=== PATIENT | female | born 1940 | race American Indian/Alaskan Native ===

== ENCOUNTER 2017-01-28 11:43 | Emergency (ER) | payer MEDICARE ==
[2017-01-28 12:42] LABS: INR 0.98 (0.87-1.13)
[2017-01-28 12:43] LABS: Hemoglobin 10.9 gm/dl (10.1-14.3); Mean Corpuscular HGB Conc 33 % (30-34); Mean Corpuscular Hemoglobin 33 pg (28-32); Mean Corpuscular Volume 101 fl (79-97); Partial Thromboplastin Time 23.2 Sec. (24.2-36.6); Platelet Count 185 K/mm3 (140-440); Red Blood Count 3.27 M/mm3 (3.65-5.03); Red Cell Distribution Width 13.1 % (13.2-15.2); White Blood Count 4.3 K/mm3 (4.5-11.0)
--- NOTE | 2017-01-28 13:07 | XRay Report ---
AP CHEST: HISTORY: Productive cough AP view of the chest demonstrates a normal mediastinal and cardiac contour with clear lungs and normal bony and soft tissue structures. IMPRESSION: Unremarkable AP chest. No significant change since 10/20/16.
[2017-01-28 13:17] LABS: Anion Gap 14 mmol/L; BUN/Creatinine Ratio 18.75; Blood Urea Nitrogen 15 mg/dL (7-17); Calcium 9.5 mg/dL (8.4-10.2); Carbon Dioxide 24 mmol/L (22-30); Chloride 106.1 mmol/L (98-107); Creatine Kinase 46 units/L (30-135); Glucose 88 mg/dL (65-100); Potassium 4.4 mmol/L (3.6-5.0); Sodium 140 mmol/L (137-145)
[2017-01-28 13:27] LABS: Creatine Kinase MB < 1.0 ng/mL (0.0-4.0)
[2017-01-28 13:43] LABS: Alanine Aminotransferase 21 units/L (7-56); Albumin 3.6 g/dL (3.9-5); Albumin/Globulin Ratio 1.5 %; Alkaline Phosphatase 87 units/L (35-129); Bilirubin,Total 0.6 mg/dL (0.1-1.2)
[2017-01-28 14:18] LABS: Bilirubin,Direct < 0.2 mg/dL (0-0.2); Bilirubin,Indirect 0.4 mg/dL
[2017-01-28 14:53] LABS: Basophils % (Manual) 0 % (0.0-1.8); Blastocytes % (Manual) 0 %
[2017-01-28 14:54] LABS: Anisocytosis 1+; Diff Status Complete
--- NOTE | 2017-01-28 15:37 | Emergency Department Report ---
ED General Adult HPI - General Chief complaint: Weakness Stated complaint: WEAKNESS Time Seen by Provider: 01/28/17 12:31 Source: patient, family, EMS Mode of arrival: Stretcher Limitations: No Limitations - History of Present Illness Initial comments: Patient complains of generalized weakness. She was transported via EMS. She states that she has felt this way for at least 2 weeks and she lives at home with her son who is "around some of the time. She states that she's had a poor appetite recently. She states that she fell this morning but not believe she has an injury. She wanted to right knee. She is not complaining of any chest pain or any shortness breath. She states that she has had some yellow sputum recently and some occasional shortness of breath. He does not believe she's had fever or chills. She's had no recent travel no leg pain or swelling. Symptoms really quite vague. She also states that home health does not to her a lot of good. -: week(s) Severity scale (0 -10): 0 Consistency: intermittent Improves with: none Worsens with: none Associated Symptoms: cough, weakness Treatments Prior to Arrival: none - Related Data Home Medications Medication Instructions Recorded Confirmed Last Taken Ranitidine HCl [Zantac] 150 mg PO BID 03/24/16 03/27/16 Unknown Previous Rx's Medication Instructions Recorded Last Taken Type Acetaminophen [Acetaminophen TAB] 650 mg PO Q4H PRN #30 tablet 03/27/16 Unknown Rx Aspirin [Aspirin TAB] 325 mg PO QDAY #30 tablet 04/11/16 Unknown Rx Atenolol [Tenormin] 100 mg PO DAILY #30 tablet 04/11/16 Unknown Rx AtorvaSTATin [Lipitor] 40 mg PO QDAY #30 tablet 04/11/16 Unknown Rx Duloxetine HCl [Cymbalta] 30 mg PO BID #60 capsule. 04/11/16 Unknown Rx Insulin Glulisine [Apidra] See Protocol SUB-Q ACHS 30 Days 04/11/16 Unknown Rx Lisinopril 20 mg PO DAILY #30 04/11/16 Unknown Rx Meloxicam [Mobic] 15 mg PO QDAY #30 tablet 04/11/16 Unknown Rx Multivitamin Tab [Multiple Vitamin 1 each PO QDAY #30 tablet 04/11/16 Unknown Rx TAB (Theragran)] Norvasc 10 mg PO DAILY #30 04/11/16 Unknown Rx Ranolazine [Ranexa] 500 mg PO BID #60 tab.er.12h 04/11/16 Unknown Rx Sertraline HCl [Zoloft] 25 mg PO QDAY #30 tablet 04/11/16 Unknown Rx Temazepam [Restoril] 15 mg PO QHS PRN #15 capsule 04/11/16 Unknown Rx traMADol [Ultram 50 MG tab] 50 mg PO QDAY PRN #30 tablet 04/11/16 Unknown Rx Acetaminophen/Codeine [Tylenol #3] 1 tab PO Q6H PRN #12 tab 09/24/16 Unknown Rx Azithromycin [Zithromax Z-MELCHOR] 250 mg PO DAILY #6 tablet 01/28/17 Unknown Rx Allergies Allergy/AdvReac Type Severity Reaction Status Date / Time zolpidem tartrate AdvReac HALLUCINATE Verified 06/14/15 12:36 [From [facility]] ED Review of Systems ROS: Stated complaint: WEAKNESS Other details as noted in HPI Constitutional: weakness. denies: chills, fever Eyes: denies: eye pain, eye discharge, vision change ENT: denies: ear pain, throat pain Respiratory: cough. denies: shortness of breath, wheezing Cardiovascular: denies: chest pain, palpitations Endocrine: no symptoms reported Gastrointestinal: denies: abdominal pain, nausea, diarrhea Genitourinary: denies: urgency, dysuria, discharge Musculoskeletal: denies: back pain, joint swelling, arthralgia Skin: denies: rash, lesions Neurological: denies: headache, weakness, paresthesias Psychiatric: denies: anxiety, depression Hematological/Lymphatic: denies: easy bleeding, easy bruising ED Past Medical Hx - Past Medical History Previous Medical History?: Yes Hx Hypertension: Yes Hx CVA: Yes (no deficits 03/24/16) Hx Heart Attack/AMI: Yes Hx Congestive Heart Failure: Yes Hx Diabetes: Yes (19 YRS) Hx GERD: Yes (GERD) Hx Liver Disease: No Hx Renal Disease: (h/o kidney stones, UTI) Hx Arthritis: Yes Hx COPD: Yes (not on inhalers, denies dyspnea) Hx HIV: No Additional medical history: HIGH CHOLESTEROL. CAD - Surgical History Past Surgical History?: Yes Hx Coronary Stent: Yes (2001) Hx Pacemaker: No Hx Appendectomy: Yes Additional Surgical History: right knee replacement, hysterectomy, back surgery - Social History Smoking Status: Former Smoker Substance Use Type: None - Medications Home Medications: Home Medications Medication Instructions Recorded Confirmed Last Taken Type Ranitidine HCl [Zantac] 150 mg PO BID 03/24/16 03/27/16 Unknown History Acetaminophen [Acetaminophen TAB] 650 mg PO Q4H PRN #30 tablet 03/27/16 Unknown Rx Aspirin [Aspirin TAB] 325 mg PO QDAY #30 tablet 04/11/16 Unknown Rx Atenolol [Tenormin] 100 mg PO DAILY #30 tablet 04/11/16 Unknown Rx AtorvaSTATin [Lipitor] 40 mg PO QDAY #30 tablet 04/11/16 Unknown Rx Duloxetine HCl [Cymbalta] 30 mg PO BID #60 capsule. 04/11/16 Unknown Rx Insulin Glulisine [Apidra] See Protocol SUB-Q ACHS 30 Days 04/11/16 Unknown Rx Lisinopril 20 mg PO DAILY #30 04/11/16 Unknown Rx Meloxicam [Mobic] 15 mg PO QDAY #30 tablet 04/11/16 Unknown Rx Multivitamin Tab [Multiple Vitamin 1 each PO QDAY #30 tablet 04/11/16 Unknown Rx TAB (Theragran)] Norvasc 10 mg PO DAILY #30 04/11/16 Unknown Rx Ranolazine [Ranexa] 500 mg PO BID #60 tab.er.12h 04/11/16 Unknown Rx Sertraline HCl [Zoloft] 25 mg PO QDAY #30 tablet 04/11/16 Unknown Rx Temazepam [Restoril] 15 mg PO QHS PRN #15 capsule 04/11/16 Unknown Rx traMADol [Ultram 50 MG tab] 50 mg PO QDAY PRN #30 tablet 04/11/16 Unknown Rx Acetaminophen/Codeine [Tylenol #3] 1 tab PO Q6H PRN #12 tab 09/24/16 Unknown Rx Azithromycin [Zithromax Z-MELCHOR] 250 mg PO DAILY #6 tablet 01/28/17 Unknown Rx ED Physical Exam - General Limitations: No Limitations General appearance: alert, in no apparent distress - Head Head exam: Present: atraumatic, normocephalic - Eye Eye exam: Present: normal appearance, PERRL, EOMI. Absent: scleral icterus - ENT ENT exam: Present: normal exam, mucous membranes moist - Neck Neck exam: Present: normal inspection. Absent: tenderness, meningismus - Respiratory Respiratory exam: Present: normal lung sounds bilaterally. Absent: respiratory distress - Cardiovascular Cardiovascular Exam: Present: regular rate, normal rhythm. Absent: systolic murmur, diastolic murmur, rubs, gallop - GI/Abdominal GI/Abdominal exam: Present: soft, normal bowel sounds. Absent: distended, tenderness, guarding, rebound, rigid - Extremities Exam Extremities exam: Present: normal inspection, full ROM, normal capillary refill. Absent: tenderness, pedal edema, joint swelling - Back Exam Back exam: Present: normal inspection. Absent: CVA tenderness (R), CVA tenderness (L) - Neurological Exam Neurological exam: Present: alert, oriented X3, CN II-XII intact. Absent: motor sensory deficit - Psychiatric Psychiatric exam: Present: normal affect, normal mood - Skin Skin exam: Present: warm, dry, intact, normal color. Absent: rash ED Course Vital Signs 01/28/17 01/28/17 13:13 14:00 Pulse Rate 79 Respiratory 16 13 Rate Blood Pressure 151/79 [Left] O2 Sat by Pulse 100 100 Oximetry - Reevaluation(s) Reevaluation #1: Was able take by mouth fluids here. She remained clinically stable. I cannot identify any acute indication for hospitalization. Outpatient follow-up was recommended. Eventually the patient did request discharge so she could go home with a family member that is being discharged today 01/28/17 17:45 ED Medical Decision Making - Lab Data Result diagrams: 01/28/17 12:12 01/28/17 12:12 Laboratory Results - last 24 hr 01/28/17 01/28/17 01/28/17 12:12 12:12 12:12 WBC 4.3 L RBC 3.27 L Hgb 10.9 Hct 33.0 MCV 101 H MCH 33 H MCHC 33 RDW 13.1 L Plt Count 185 Lymph % (Auto) Not Reportable [place] % (Auto) Not Reportable Eos % (Auto) Not Reportable Baso % (Auto) Not Reportable Lymph # Not Reportable Deuel # Not Reportable Eos # Not Reportable Baso # Not Reportable Add Manual Diff Complete Total Counted 100 Seg Neuts % (Manual) 65.0 Band Neutrophils % 0 Lymphocytes % (Manual) 27.0 Reactive Lymphs % (Man) 0 Monocytes % (Manual) 7.0 Eosinophils % (Manual) 1.0 Basophils % (Manual) 0 Metamyelocytes % 0 Myelocytes % 0 Promyelocytes % 0 Blast Cells % 0 Nucleated RBC % Not Reportable Seg Neutrophils # Not Reportable Seg Neutrophils # Man 2.8 Band Neutrophils # 0.0 Lymphocytes # (Manual) 1.2 Abs React Lymphs (Man) 0.0 Monocytes # (Manual) 0.3 Eosinophils # (Manual) 0.0 Basophils # (Manual) 0.0 Metamyelocytes # 0.0 Myelocytes # 0.0 Promyelocytes # 0.0 Blast Cells # 0.0 WBC Morphology Not Reportable Hypersegmented Neuts Not Reportable Hyposegmented Neuts Not Reportable Hypogranular Neuts Not Reportable Smudge Cells Not Reportable Toxic Granulation Not Reportable Toxic Vacuolation Not Reportable Dohle Bodies Not Reportable Pelger-Huet Anomaly Not Reportable Ayesha Rods Not Reportable Platelet Estimate Not Reportable Clumped Platelets Not Reportable Plt Clumps, EDTA Not Reportable Large Platelets Not Reportable Giant Platelets Not Reportable Platelet Satelliting Not Reportable Plt Morphology Comment Not Reportable RBC Morphology Not Reportable Dimorphic RBCs Not Reportable Polychromasia Not Reportable Hypochromasia Not Reportable Poikilocytosis Not Reportable Anisocytosis 1+ Microcytosis Not Reportable Macrocytosis Not Reportable Spherocytes Not Reportable Pappenheimer Bodies Not Reportable Sickle Cells Not Reportable Target Cells Not Reportable Tear Drop Cells Not Reportable Ovalocytes Not Reportable Helmet Cells Not Reportable [place] Bodies Not Reportable [place] Rings Not Reportable [place] Cells Not Reportable Bite Cells Not Reportable Crenated Cell Not Reportable Elliptocytes Not Reportable Acanthocytes (Spur) Not Reportable Rouleaux Not Reportable Hemoglobin C Crystals Not Reportable Schistocytes Not Reportable Malaria parasites Not Reportable Rj Bodies Not Reportable Hem Pathologist Commnt No PT 12.9 INR 0.98 APTT 23.2 L Sodium 140 Potassium 4.4 Chloride 106.1 Carbon Dioxide 24 Anion Gap 14 BUN 15 Creatinine 0.8 Estimated GFR > 60 BUN/Creatinine Ratio 18.75 Glucose 88 Calcium 9.5 Total Bilirubin Direct Bilirubin Indirect Bilirubin AST ALT Alkaline Phosphatase Total Creatine Kinase 46 CK-MB (CK-2) < 1.0 CK-MB (CK-2) Rel Index 2.1 Troponin T < 0.010 NT-Pro-B Natriuret Pep Total Protein Albumin Albumin/Globulin Ratio 01/28/17 01/28/17 12:12 12:12 WBC RBC Hgb Hct MCV MCH MCHC RDW Plt Count Lymph % (Auto) [place] % (Auto) Eos % (Auto) Baso % (Auto) Lymph # [place] # Eos # Baso # Add Manual Diff Total Counted Seg Neuts % (Manual) Band Neutrophils % Lymphocytes % (Manual) Reactive Lymphs % (Man) Monocytes % (Manual) Eosinophils % (Manual) Basophils % (Manual) Metamyelocytes % Myelocytes % Promyelocytes % Blast Cells % Nucleated RBC % Seg Neutrophils # Seg Neutrophils # Man Band Neutrophils # Lymphocytes # (Manual) Abs React Lymphs (Man) Monocytes # (Manual) Eosinophils # (Manual) Basophils # (Manual) Metamyelocytes # Myelocytes # Promyelocytes # Blast Cells # WBC Morphology Hypersegmented Neuts Hyposegmented Neuts Hypogranular Neuts Smudge Cells Toxic Granulation Toxic Vacuolation Dohle Bodies Pelger-Huet Anomaly Ayesha Rods Platelet Estimate Clumped Platelets Plt Clumps, EDTA Large Platelets Giant Platelets Platelet Satelliting Plt Morphology Comment RBC Morphology Dimorphic RBCs Polychromasia Hypochromasia Poikilocytosis Anisocytosis Microcytosis Macrocytosis Spherocytes Pappenheimer Bodies Sickle Cells Target Cells Tear Drop Cells Ovalocytes Helmet Cells [place] Bodies [place] Rings [place] Cells Bite Cells Crenated Cell Elliptocytes Acanthocytes (Spur) Rouleaux Hemoglobin C Crystals Schistocytes Malaria parasites Rj Bodies Hem Pathologist Commnt PT INR APTT Sodium Potassium Chloride Carbon Dioxide Anion Gap BUN Creatinine Estimated GFR BUN/Creatinine Ratio Glucose Calcium Total Bilirubin 0.6 Direct Bilirubin < 0.2 Indirect Bilirubin 0.4 AST 19 ALT 21 Alkaline Phosphatase 87 Total Creatine Kinase CK-MB (CK-2) CK-MB (CK-2) Rel Index Troponin T NT-Pro-B Natriuret Pep 191.3 Total Protein 6.0 L Albumin 3.6 L Albumin/Globulin Ratio 1.5 - EKG Data -: EKG Interpreted by Me EKG shows normal: sinus rhythm, axis, intervals, QRS complexes, ST-T waves Rate: normal - EKG Data Interpretation: no acute changes - Radiology Data interpreted by me: Chest x-ray no acute process Critical care attestation.: If time is entered above; I have spent that time in minutes in the direct care of this critically ill patient, excluding procedure time. ED Disposition Clinical Impression: General weakness Acute bronchitis Qualifiers: Bronchitis organism: unspecified organism Qualified Code(s): J20.9 - Acute bronchitis, unspecified Disposition: DISCHARGED TO HOME OR SELFCARE Is pt being admited?: No Does the pt Need Aspirin: No Condition: Stable Instructions: Acute Bronchitis (ED), Weakness (ED) Additional Instructions: Return any acute change or problem. Increase your fluids. I've written a prescription for your cough. Perhaps you have bronchitis but no ammonia showed up on the x-ray. Follow-up with primary care doctor would be recommended. Prescriptions: Azithromycin [Zithromax Z-MELCHOR] 250 mg PO DAILY #6 tablet Referrals: PRIMARY CARE, [Primary Care Provider] - 24 Hours Time of Disposition: 17:50
[2017-01-28 16:32] LABS: Bilirubin,Urine NEG (Negative); Blood,Urine NEG (Negative); Ketones,Urine NEG (Negative); Leukocyte Esterase,Urine NEG (Negative); Nitrite,Urine NEG (Negative); Protein,Urine <15 mg/dL mg/dL (Negative); RBC,Urine < 1.0 /HPF (0.0-6.0); Urobilinogen,Urine < 2.0 mg/dL (<2.0); WBC,Urine < 1.0 /HPF (0.0-6.0)
[2017-01-28 18:01] VITALS: BP 155/87
== END 2017-01-28 18:02 | disposition home or self-care (01) ==
LOC: ED 11:43
DX: J20.9 Acute bronchitis, unspecified (principal); R53.1 Weakness; I10 Essential (primary) hypertension; I25.2 Old myocardial infarction; I50.9 Heart failure, unspecified; E11.9 Type 2 diabetes mellitus without complications; K21.9 Gastro-esophageal reflux disease without esophagitis; J44.9 Chronic obstructive pulmonary disease, unspecified; Z87.891 Personal history of nicotine dependence
CPT/HCPCS: 36415; 71010; 80048; 80074; 81001; 82550; 82553; 83880; 84484; 85007; 85025; 85610; 85730; 93005; 93010; 99284

== ENCOUNTER 2018-01-20 09:59 | Outpatient (CLI) | payer MEDICARE ==
--- NOTE | 2018-01-20 11:22 | Cat Scan Report ---
CT ABDOMEN PELVIS WITHOUT CONTRAST: HISTORY: Gross hematuria. COMPARISON: 08/11/17. TECHNIQUE: Helical CT in 1.25mm intervals without IV contrast. Sagittal and coronal reconstructions. FINDINGS: Lung bases: Adequately aerated. Heart size is normal. Small hiatal hernia with suggestion of previous hernia repair surgical changes near the esophageal hiatus. Liver: Normal. Biliary system: Cholecystectomy. No biliary dilatation. Pancreas: Normal. Spleen: Normal. Kidneys/ureters/bladder: The kidneys are normal size and position. There are 2 exophytic cysts from the mid right kidney measuring up to 2.3 cm. No obvious renal mass on noncontrast CT. No nephrolithiasis. The ureters and bladder are unremarkable. Adrenal glands: Normal. Aorta: Mild calcifications. No aneurysm. Intestines: There is mild fecal retention in the colon. Scattered diverticula are noted in the sigmoid region. No acute inflammatory changes. No evidence for obstruction or focal mass. Appendix: Appendectomy changes are suspected. Pelvic viscera: Hysterectomy is suspected. No adnexal cyst or mass. Ascites: None. Adenopathy: None. Musculoskeletal: Osteopenia and mild diffuse degenerative changes.. IMPRESSION: Simple right renal cysts. No clear explanation for gross hematuria. Diverticulosis of the distal colon. Mild fecal retention. Surgical changes as described. No acute process identified.
== END 2018-01-20 10:00 | disposition home or self-care (01) ==
LOC: CT 09:59
PROVIDERS: ATTEND Urology
DX: N28.1 Cyst of kidney, acquired (principal); K44.9 Diaphragmatic hernia without obstruction or gangrene; K57.30 Diverticulosis of large intestine without perforation or abscess without bleeding; I70.0 Atherosclerosis of aorta; K59.00 Constipation, unspecified; M85.88 Other specified disorders of bone density and structure, other site; M47.899 Other spondylosis, site unspecified; Z90.49 Acquired absence of other specified parts of digestive tract; Z90.89 Acquired absence of other organs; Z90.710 Acquired absence of both cervix and uterus
CPT/HCPCS: 74176

== ENCOUNTER 2018-03-31 10:13 | Emergency (ER) | payer MEDICARE ==
--- NOTE | 2018-03-31 10:53 | Emergency Department Report ---
ED Abdominal Pain HPI - General Chief Complaint: Abdominal Pain Stated Complaint: FLANK PAIN Time Seen by Provider: 03/31/18 10:36 Source: patient, EMS Mode of arrival: Stretcher Limitations: Other - History of Present Illness Initial Comments: 77-year-old female with a past medical history of CHF, COPD, CVA without residual deficits, diabetes, GERD, CAD, hypertension, appendectomy, coronary stent, hysterectomy, cholecystectomy, and ureteral stent presents to the hospital complaints of left flank and abdominal pain 1 week worsening yesterday. Pain is described as achy and is moderate in intensity worse of movement and palpation. She is not taking any medication for pain at this time. She denies associated symptoms include nausea, vomiting, diarrhea, hematuria, dysuria, or fever. Decreased appetite reported. PMD: Dr. Drake, urologist is Dr. Haile Patient also states she has a history of chronic arthritis of the spine and in the past has received spinal injection. Her nurse supposedly rearranging follow up with these doctors to reinitiate treatment. - Related Data Home Medications Medication Instructions Recorded Confirmed Last Taken Ranitidine HCl [Zantac] 150 mg PO BID 03/24/16 08/12/17 Unknown Previous Rx's Medication Instructions Recorded Last Taken Type Acetaminophen [Acetaminophen TAB] 650 mg PO Q4H PRN #30 tablet 03/27/16 Unknown Rx Aspirin [Aspirin TAB] 325 mg PO QDAY #30 tablet 04/11/16 Unknown Rx Atenolol [Tenormin] 100 mg PO DAILY #30 tablet 04/11/16 Unknown Rx AtorvaSTATin [Lipitor] 40 mg PO QDAY #30 tablet 04/11/16 Unknown Rx Duloxetine HCl [Cymbalta] 30 mg PO BID #60 capsule. 04/11/16 Unknown Rx Insulin Glulisine [Apidra] See Protocol SUB-Q ACHS 30 Days 04/11/16 Unknown Rx units Lisinopril 20 mg PO DAILY #30 04/11/16 Unknown Rx Multivitamin Tab [Multiple Vitamin 1 each PO QDAY #30 tablet 04/11/16 Unknown Rx TAB (Theragran)] Norvasc 10 mg PO DAILY #30 04/11/16 Unknown Rx Ranolazine [Ranexa] 500 mg PO BID #60 tab.er.12h 04/11/16 Unknown Rx Sertraline HCl [Zoloft] 25 mg PO QDAY #30 tablet 04/11/16 Unknown Rx Temazepam [Restoril] 15 mg PO QHS PRN #15 capsule 04/11/16 Unknown Rx Azithromycin [Zithromax Z-MELCHOR] 250 mg PO DAILY #6 tablet 01/28/17 Unknown Rx HYDROcodone/APAP 5-325 [D Lo 1 each PO Q6HR PRN #10 tablet 08/17/17 Unknown Rx 5/325] Levofloxacin [Levaquin TAB] 500 mg PO Q24HR #3 tablet 08/17/17 Unknown Rx Cyclobenzaprine HCl [Flexeril 5 MG 5 mg PO TID PRN #30 tab 03/31/18 Unknown Rx TAB] Docusate Sodium [Colace] 100 mg PO BID PRN #20 capsule 03/31/18 Unknown Rx HYDROcodone/APAP 7.5-325 [D Lo 1 each PO Q6HR PRN #20 tablet 03/31/18 Unknown Rx 7.5/325] Ibuprofen [Motrin] 600 mg PO Q8H PRN #30 tablet 03/31/18 Unknown Rx Allergies Allergy/AdvReac Type Severity Reaction Status Date / Time zolpidem tartrate AdvReac HALLUCINATE Verified 06/14/15 12:36 [From [facility]] ED Review of Systems ROS: Stated complaint: FLANK PAIN Other details as noted in HPI Comment: All other systems reviewed and negative ED Past Medical Hx - Past Medical History Previous Medical History?: Yes Hx Hypertension: Yes Hx CVA: Yes (no deficits 03/24/16) Hx Heart Attack/AMI: Yes Hx Congestive Heart Failure: Yes Hx Diabetes: Yes (20 YRS) Hx GERD: Yes (GERD) Hx Liver Disease: No Hx Renal Disease: Yes (h/o kidney stones, UTI) Hx Arthritis: Yes Hx COPD: Yes (not on inhalers, denies dyspnea) Hx HIV: No Additional medical history: HIGH CHOLESTEROL. CAD - Surgical History Hx Coronary Stent: Yes (2001) Hx Pacemaker: No Hx Cholecystectomy: Yes (08/18) Hx Appendectomy: Yes Additional Surgical History: right knee replacement, hysterectomy, back surgery , stent in kidney/bladder? - Social History Smoking Status: Never Smoker Substance Use Type: None - Medications Home Medications: Home Medications Medication Instructions Recorded Confirmed Last Taken Type Ranitidine HCl [Zantac] 150 mg PO BID 03/24/16 08/12/17 Unknown History Acetaminophen [Acetaminophen TAB] 650 mg PO Q4H PRN #30 tablet 03/27/16 Unknown Rx Aspirin [Aspirin TAB] 325 mg PO QDAY #30 tablet 04/11/16 08/12/17 Unknown Rx Atenolol [Tenormin] 100 mg PO DAILY #30 tablet 04/11/16 08/12/17 Unknown Rx AtorvaSTATin [Lipitor] 40 mg PO QDAY #30 tablet 04/11/16 08/12/17 Unknown Rx Duloxetine HCl [Cymbalta] 30 mg PO BID #60 capsule. 04/11/16 08/12/17 Unknown Rx Insulin Glulisine [Apidra] See Protocol SUB-Q ACHS 30 Days 04/11/16 08/12/17 Unknown Rx units Lisinopril 20 mg PO DAILY #30 04/11/16 08/12/17 Unknown Rx Multivitamin Tab [Multiple Vitamin 1 each PO QDAY #30 tablet 04/11/16 08/12/17 Unknown Rx TAB (Theragran)] Norvasc 10 mg PO DAILY #30 04/11/16 08/12/17 Unknown Rx Ranolazine [Ranexa] 500 mg PO BID #60 tab.er.12h 04/11/16 08/12/17 Unknown Rx Sertraline HCl [Zoloft] 25 mg PO QDAY #30 tablet 04/11/16 08/12/17 Unknown Rx Temazepam [Restoril] 15 mg PO QHS PRN #15 capsule 04/11/16 08/12/17 Unknown Rx Azithromycin [Zithromax Z-MELCHOR] 250 mg PO DAILY #6 tablet 01/28/17 08/12/17 Unknown Rx HYDROcodone/APAP 5-325 [D Lo 1 each PO Q6HR PRN #10 tablet 08/17/17 Unknown Rx 5/325] Levofloxacin [Levaquin TAB] 500 mg PO Q24HR #3 tablet 08/17/17 Unknown Rx Cyclobenzaprine HCl [Flexeril 5 MG 5 mg PO TID PRN #30 tab 03/31/18 Unknown Rx TAB] Docusate Sodium [Colace] 100 mg PO BID PRN #20 capsule 03/31/18 Unknown Rx HYDROcodone/APAP 7.5-325 [D Lo 1 each PO Q6HR PRN #20 tablet 03/31/18 Unknown Rx 7.5/325] Ibuprofen [Motrin] 600 mg PO Q8H PRN #30 tablet 03/31/18 Unknown Rx ED Physical Exam - General Limitations: Other - Other Other exam information: General: No limitations, patient is alert in no acute distress Head exam: Atraumatic, normocephalic Eyes exam: Normal appearance, nonicteric sclera ENT: Moist mucous membrane, normal oropharynx Neck exam: Normal inspection, full range of motion, no meningismus nontender Respiratory exam: Clear to auscultation bilateral, no wheezes, rales, crackles Cardiovascular: Normal rate and rhythm, normal heart sounds Abdomen: Soft, nondistended, left lower quadrant tenderness, left mid abdominal tenderness, no rebound or guarding Extremity: Full range of motion normal inspection no deformity Back: Normal Inspection, full range of motion, left flank tenderness Neurologic: Alert, oriented x3, left arm and leg 4/5 strength (chronic) 5/5 on the right Psychiatric: normal affect, normal mood Skin: Warm, dry, intact ED Course Vital Signs 03/31/18 03/31/18 03/31/18 10:23 10:30 10:45 Temperature 98.4 F Pulse Rate 54 L Blood Pressure 171/71 O2 Sat by Pulse 99 99 99 Oximetry 03/31/18 03/31/18 03/31/18 11:00 11:27 11:31 Temperature Pulse Rate Blood Pressure 177/57 O2 Sat by Pulse 99 98 Oximetry 03/31/18 03/31/18 03/31/18 11:45 12:01 12:15 Temperature Pulse Rate Blood Pressure 177/57 O2 Sat by Pulse 99 99 100 Oximetry 03/31/18 03/31/18 03/31/18 12:30 12:45 13:01 Temperature Pulse Rate Blood Pressure 192/81 155/74 192/81 O2 Sat by Pulse 98 99 99 Oximetry - Reevaluation(s) Reevaluation #1: 03/31/18 14:49 pain persists but improving ED Medical Decision Making - Lab Data Result diagrams: 03/31/18 11:22 03/31/18 10:46 Lab Results 03/31/18 03/31/18 03/31/18 Range/Units 10:46 11:22 13:11 WBC 3.7 L (4.5-11.0) K/mm3 RBC 3.41 L (3.65-5.03) M/mm3 Hgb 11.8 (10.1-14.3) gm/dl Hct 34.7 (30.3-42.9) % MCV 102 H (79-97) fl MCH 35 H (28-32) pg MCHC 34 (30-34) % RDW 14.1 (13.2-15.2) % Plt Count 148 (140-440) K/mm3 Lymph % (Auto) 41.0 H (13.4-35.0) % Swisher % (Auto) 14.2 H (0.0-7.3) % Eos % (Auto) 1.7 (0.0-4.3) % Baso % (Auto) 0.5 (0.0-1.8) % Lymph # 1.5 (1.2-5.4) K/mm3 Swisher # 0.5 (0.0-0.8) K/mm3 Eos # 0.1 (0.0-0.4) K/mm3 Baso # 0.0 (0.0-0.1) K/mm3 Seg Neutrophils % 42.6 (40.0-70.0) % Seg Neutrophils # 1.6 L (1.8-7.7) K/mm3 Sodium 140 (137-145) mmol/L Potassium 4.7 (3.6-5.0) mmol/L Chloride 104.2 (98-107) mmol/L Carbon Dioxide 22 (22-30) mmol/L Anion Gap 19 mmol/L BUN 12 (7-17) mg/dL Creatinine 0.9 (0.7-1.2) mg/dL Estimated GFR > 60 ml/min BUN/Creatinine Ratio 13 % Glucose 93 (65-100) mg/dL Calcium 9.3 (8.4-10.2) mg/dL Total Bilirubin 0.50 (0.1-1.2) mg/dL AST 43 H (5-40) units/L ALT 103 H (7-56) units/L Alkaline Phosphatase 93 (35-129) units/L Total Protein 6.5 (6.3-8.2) g/dL Albumin 3.4 L (3.9-5) g/dL Albumin/Globulin Ratio 1.1 % Urine Color Yellow (Yellow) Urine Turbidity Clear (Clear) Urine pH 6.0 (5.0-7.0) Ur Specific [place] 1.009 (1.003-1.030) Urine Protein <15 mg/dl (Negative) mg/dL Urine Glucose (UA) Neg (Negative) mg/dL Urine Ketones Neg (Negative) mg/dL Urine Blood Neg (Negative) Urine Nitrite Neg (Negative) Urine Bilirubin Neg (Negative) Urine Urobilinogen < 2.0 (<2.0) mg/dL Ur Leukocyte Esterase Neg (Negative) Urine WBC (Auto) 1.0 (0.0-6.0) /HPF Urine RBC (Auto) 1.0 (0.0-6.0) /HPF U Epithel Cells (Auto) < 1.0 (0-13.0) /HPF Hyaline Casts 1 /LPF - Radiology Data Radiology results: report reviewed Read by radiologist CT abdomen and pelvis noncontrast No acute findings No change from 01/20/2018 - Medical Decision Making Patient treated with D Lo, Toradol, and Flexeril in the ED with some improvement in her left-sided flank and lower abdominal pain. CT abdomen and pelvis as well as labs and urine are negative for infection or acute process. I suspect that this exacerbation of patient's ongoing arthritis related pain. She is currently not taking any medications at home for pain and therefore prescribed pain medication, anti-inflammatory, and muscle relaxants. Outpatient follow-up with primary care doctor and physician for spinal injection physician will be encouraged. - Differential Diagnosis diverticulitis, renal colic, UTI, herniated disc, muscle strain Critical Care Time: No Critical care attestation.: If time is entered above; I have spent that time in minutes in the direct care of this critically ill patient, excluding procedure time. ED Disposition Clinical Impression: Left flank pain Disposition: DC-01 TO HOME OR SELFCARE Is pt being admited?: No Does the pt Need Aspirin: No Condition: Stable Instructions: Flank Pain (ED) Additional Instructions: Follow-up with your primary care doctor and the specialist regarding treatment for you back treatment. Return if symptoms worsen as indicated by your discharge instructions. Prescriptions: Cyclobenzaprine HCl [Flexeril 5 MG TAB] 5 mg PO TID PRN #30 tab PRN Reason: Muscle Spasm Docusate Sodium [Colace] 100 mg PO BID PRN #20 capsule PRN Reason: Constipation HYDROcodone/APAP 7.5-325 [D Lo 7.5/325] 1 each PO Q6HR PRN #20 tablet PRN Reason: Pain Ibuprofen [Motrin] 600 mg PO Q8H PRN #30 tablet PRN Reason: Pain Referrals: PRIMARY CARE, [Primary Care Provider] - 3-5 Days CAIN BALDERRAMA MD [Staff Physician] - 3-5 Days (Orthopedic surgeon ) Time of Disposition: 14:53
[2018-03-31] MEDS ORDERED: TORADOL IV ONE (10:57)
[2018-03-31] MEDS ORDERED: NACL 0.9% 1000 ML 1,000 ML IV ONE (10:57)
[2018-03-31] MEDS ORDERED: NORCO 5/325 PO ONE ×2 (11:29→13:40)
[2018-03-31 11:49] LABS: Alanine Aminotransferase 103 units/L (7-56); Albumin 3.4 g/dL (3.9-5); BUN/Creatinine Ratio 13; Blood Urea Nitrogen 12 mg/dL (7-17); Calcium 9.3 mg/dL (8.4-10.2); Hemolysis Index 109
--- NOTE | 2018-03-31 12:07 | Cat Scan Report ---
CT ABDOMEN PELVIS WITHOUT CONTRAST: HISTORY: Left flank pain. COMPARISON: 01/20/18. TECHNIQUE: Helical CT in 1.25mm intervals without IV contrast. Sagittal and coronal reconstructions. FINDINGS: Lung bases: Adequately aerated. Small to medium all hernia is again noted. Normal heart size. Liver: Normal. Biliary system: Cholecystectomy. No biliary dilatation. Pancreas: Normal. Spleen: Normal. Kidneys/ureters/bladder: The left kidney and collecting system are unremarkable. Scattered simple cysts in the right kidney are also unchanged. No evidence for nephrolithiasis, ureteral stones or hydronephrosis. Normal bladder. Adrenal glands: Normal. Aorta: Normal. Intestines: Mild diverticulosis of the distal colon is again noted. No evidence for obstruction or focal inflammation. Appendix: Not confidently identified. Pelvic viscera: Hysterectomy changes are noted. Ascites: None. Adenopathy: None. Musculoskeletal: Osteopenia and advanced degenerative changes in the thoracolumbar spine. No fracture is appreciated. IMPRESSION: No acute process is identified in the abdomen or pelvis. No clear explanation for left flank pain. No significant change since 01/20/18.
[2018-03-31 12:09] LABS: Basophils % (Auto) 0.5 % (0.0-1.8); Eosinophils # (Auto) 0.1 K/mm3 (0.0-0.4); Eosinophils % (Auto) 1.7 % (0.0-4.3); Hematocrit 34.7 % (30.3-42.9); Hemoglobin 11.8 gm/dl (10.1-14.3); Lymphocytes # (Auto) 1.5 K/mm3 (1.2-5.4); Mean Corpuscular HGB Conc 34 % (30-34); Mean Corpuscular Hemoglobin 35 pg (28-32); Mean Corpuscular Volume 102 fl (79-97); Monocytes # (Auto) 0.5 K/mm3 (0.0-0.8); Monocytes % (Auto) 14.2 % (0.0-7.3); Platelet Count 148 K/mm3 (140-440); Red Blood Count 3.41 M/mm3 (3.65-5.03); Red Cell Distribution Width 14.1 % (13.2-15.2)
[2018-03-31] MEDS ORDERED: TORADOL IM ONE (12:28)
[2018-03-31 14:21] LABS: Bilirubin,Urine NEG (Negative); Blood,Urine NEG (Negative); Color,Urine Yellow (Yellow); Hyaline Casts,Urine 1 /LPF; Protein,Urine <15 mg/dL mg/dL (Negative); Urobilinogen,Urine < 2.0 mg/dL (<2.0)
[2018-03-31] MEDS ORDERED: FLEXERIL PO ONE (14:45)
[2018-03-31 15:30] VITALS: BP 178/82
== END 2018-03-31 15:31 | disposition home or self-care (01) ==
LOC: ED 10:13
DX: R10.32 Left lower quadrant pain (principal); I11.0 Hypertensive heart disease with heart failure; I50.9 Heart failure, unspecified; I25.2 Old myocardial infarction; E11.9 Type 2 diabetes mellitus without complications; K21.9 Gastro-esophageal reflux disease without esophagitis; M19.90 Unspecified osteoarthritis, unspecified site; J44.9 Chronic obstructive pulmonary disease, unspecified; E78.00 Pure hypercholesterolemia, unspecified; Z86.73 Personal history of transient ischemic attack (TIA), and cerebral infarction without residual deficits; Z90.49 Acquired absence of other specified parts of digestive tract; Z87.442 Personal history of urinary calculi; Z90.710 Acquired absence of both cervix and uterus; Z88.8 Allergy status to other drugs, medicaments and biological substances; Z79.4 Long term (current) use of insulin
CPT/HCPCS: 36415; 74176; 80053; 81001; 85025; 96372; 99284; J1885; J7030

== ENCOUNTER 2019-04-01 17:11 | Emergency (ER) | payer MEDICARE ==
--- NOTE | 2019-04-01 17:18 | Event Note ---
ED Screening Note ED Screening Note: CP OFF AND ON FOR A COUPLE DAYS PMH CAD CVA RX ATENOLOL CANT REMEMBER OTHERS DESCRIBES PAIN TIGHT NO N/V/D WEAK APPEARING VSS This initial assessment/diagnostic orders/clinical plan/treatment(s) is/are subject to change based on patients health status, clinical progression and re- assessment by fellow clinical providers in the ED. Further treatment and workup at subsequent clinical providers discretion. Patient/guardian urged not to elope from the ED as their condition may be serious if not clinically assessed and managed. Initial orders include: EKG LABS UA CHEST XRAY
[2019-04-01 17:46] VITALS: BP 139/89
[2019-04-01 18:26] LABS: Alanine Aminotransferase 18 units/L (7-56); Albumin 3.1 g/dL (3.9-5); BUN/Creatinine Ratio 19; Blood Urea Nitrogen 15 mg/dL (7-17); Calcium 8.9 mg/dL (8.4-10.2); Hemolysis Index 39
--- NOTE | 2019-04-01 18:43 | XRay Report ---
PROCEDURE: XR CHEST ROUTINE 2V TECHNIQUE: PA and lateral chest radiographs were obtained. HISTORY: Chest Pain COMPARISONS: None. FINDINGS: Heart: Normal. Mediastinum/Vessels: Normal. Lungs/Pleural space: Normal. Bony thorax: No acute osseous abnormality. IMPRESSION: Normal examination. This document is electronically signed by Cameron Chavez MD., Apr 01 2019 07:40:52 PM ET
[2019-04-01 18:47] LABS: Hematocrit 36.7 % (30.3-42.9); Hemoglobin 11.8 gm/dl (10.1-14.3); Mean Corpuscular HGB Conc 32 % (30-34); Mean Corpuscular Volume 107 fl (79-97); Platelet Count 161 K/mm3 (140-440); Red Blood Count 3.42 M/mm3 (3.65-5.03); Red Cell Distribution Width 14.2 % (13.2-15.2)
[2019-04-01 18:48] LABS: Basophils % (Auto) 0.7 % (0.0-1.8); Eosinophils % (Auto) 1.5 % (0.0-4.3); Lymphocytes # (Auto) 1.2 K/mm3 (1.2-5.4); Lymphocytes % (Auto) 34.2 % (13.4-35.0); Monocytes % (Auto) 10.9 % (0.0-7.3)
[2019-04-01 18:49] LABS: Eosinophils # (Auto) 0.1 K/mm3 (0.0-0.4); Monocytes # (Auto) 0.4 K/mm3 (0.0-0.8)
== END 2019-04-01 21:00 | disposition left against medical advice (07) ==
LOC: ED 17:11
DX: R07.9 Chest pain, unspecified (principal); Z53.21 Procedure and treatment not carried out due to patient leaving prior to being seen by health care provider
CPT/HCPCS: 36415; 71046; 80053; 82550; 84484; 85025; 93005; 93010

== ENCOUNTER 2019-05-29 15:50 | Inpatient (IN) | payer MEDICARE ==
--- NOTE | 2019-05-29 16:04 | Emergency Department Report ---
Blank Doc - Documentation Documentation: This is a 78-year-old female that presents with dizziness and headache x1 week. Stated also has blurry vision. This initial assessment/diagnostic orders/clinical plan/treatment(s) is/are subject to change based on patient's health status, clinical progression and re-assessment by fellow clinical providers in the ED. Further treatment and workup at subsequent clinical providers discretion. Patient/guardians urged not to elope from the ED as their condition may be serious if not clinically assessed and managed. Initial orders include: 1- Patient sent to MAIN ED for further evaluation and treatment 2- CT scan 3- labs 3- EKG 4- stroke protocol initiated
[2019-05-29 17:21] LABS: Basophils % (Auto) 0.9 % (0.0-1.8); Eosinophils % (Auto) 1.5 % (0.0-4.3); Hemoglobin 12.1 gm/dl (10.1-14.3); Lymphocytes # (Auto) 1.5 K/mm3 (1.2-5.4); Lymphocytes % (Auto) 46.2 % (13.4-35.0); Mean Corpuscular HGB Conc 34 % (30-34); Mean Corpuscular Volume 103 fl (79-97); Monocytes # (Auto) 0.4 K/mm3 (0.0-0.8); Monocytes % (Auto) 11.3 % (0.0-7.3); Platelet Count 144 K/mm3 (140-440); Red Blood Count 3.49 M/mm3 (3.65-5.03); Red Cell Distribution Width 13.7 % (13.2-15.2)
[2019-05-29 17:30] LABS: INR 1.04 (0.87-1.13)
[2019-05-29 17:31] LABS: Partial Thromboplastin Time 25.9 Sec. (24.2-36.6); Thrombin Time 17.3 Sec. (15.1-19.6)
[2019-05-29 17:43] LABS: Creatine Kinase MB 1.6 ng/mL (0.0-4.0)
[2019-05-29 17:45] LABS: Alanine Aminotransferase 20 units/L (7-56); Albumin 3.6 g/dL (3.9-5); BUN/Creatinine Ratio 14; Blood Urea Nitrogen 11 mg/dL (7-17); Calcium 9.3 mg/dL (8.4-10.2); Hemolysis Index 10
--- NOTE | 2019-05-29 18:06 | Emergency Department Report ---
ED General Adult HPI - General Chief complaint: Headache Stated complaint: HEADACHE/DIZZINESS Time Seen by Provider: 05/29/19 16:00 Source: patient Mode of arrival: Wheelchair Limitations: No Limitations - History of Present Illness Initial comments: Patient is a 78-year-old female that presents complaints of headache and dizziness 1 week. Patient states her blood pressure medications for a week. Patient is also shortness of breath and dyspnea on exertion. Patient states her headache and dizziness worsened today. Patient states any time she becomes extremely dizzy and almost falls. Patient states she started having blurred vision this morning at 11 AM. Patient also had a couple bouts of nausea and vomiting. -: Sudden Location: head Severity scale (0 -10): 9 Quality: sharp Consistency: constant Improves with: rest Worsens with: movement Associated Symptoms: headaches, malaise, nausea/vomiting, shortness of breath. denies: confusion, chest pain, cough, diaphoresis, fever/chills, loss of appetite, rash, seizure, syncope, weakness Treatments Prior to Arrival: none - Related Data Home Medications Medication Instructions Recorded Confirmed Last Taken Ranitidine HCl [Zantac] 150 mg PO BID 03/24/16 08/12/17 Unknown Previous Rx's Medication Instructions Recorded Last Taken Type Acetaminophen [Acetaminophen TAB] 650 mg PO Q4H PRN #30 tablet 03/27/16 Unknown Rx Aspirin 325 mg PO QDAY #30 tablet 04/11/16 Unknown Rx Atenolol [Tenormin] 100 mg PO DAILY #30 tablet 04/11/16 Unknown Rx AtorvaSTATin [Lipitor] 40 mg PO QDAY #30 tablet 04/11/16 Unknown Rx Duloxetine HCl [Cymbalta] 30 mg PO BID #60 capsule. 04/11/16 Unknown Rx Insulin Glulisine [Apidra] See Protocol SUB-Q ACHS 30 Days 04/11/16 Unknown Rx units Lisinopril 20 mg PO DAILY #30 04/11/16 Unknown Rx Multivitamin Tab [Multiple Vitamin 1 each PO QDAY #30 tablet 04/11/16 Unknown Rx TAB (Theragran)] Norvasc 10 mg PO DAILY #30 04/11/16 Unknown Rx Ranolazine [Ranexa] 500 mg PO BID #60 tab.er.12h 04/11/16 Unknown Rx Sertraline HCl [Zoloft] 25 mg PO QDAY #30 tablet 04/11/16 Unknown Rx Temazepam [Restoril] 15 mg PO QHS PRN #15 capsule 04/11/16 Unknown Rx Azithromycin [Zithromax Z-MELCHOR] 250 mg PO DAILY #6 tablet 01/28/17 Unknown Rx HYDROcodone/APAP 5-325 [[place] 1 each PO Q6HR PRN #10 tablet 08/17/17 Unknown Rx 5/325] levoFLOXacin [Levaquin TAB] 500 mg PO Q24HR #3 tablet 08/17/17 Unknown Rx Cyclobenzaprine HCl [Flexeril 5 MG 5 mg PO TID PRN #30 tab 03/31/18 Unknown Rx TAB] Docusate Sodium [Colace] 100 mg PO BID PRN #20 capsule 03/31/18 Unknown Rx HYDROcodone/APAP 7.5-325 [[place] 1 each PO Q6HR PRN #20 tablet 03/31/18 Unknown Rx 7.5/325] Ibuprofen [Motrin] 600 mg PO Q8H PRN #30 tablet 03/31/18 Unknown Rx Acetaminophen [Tylenol Extra 1,000 mg PO QID PRN #30 tablet 02/20/19 Unknown Rx Strength] Cyclobenzaprine [Flexeril] 10 mg PO BID PRN #20 tablet 02/20/19 Unknown Rx Diclofenac Sodium [Voltaren] 1 applicatio TP QID PRN #1 tube 02/20/19 Unknown Rx predniSONE [Deltasone] 40 mg PO QDAY 5 Days #10 tab 02/20/19 Unknown Rx Allergies Allergy/AdvReac Type Severity Reaction Status Date / Time zolpidem tartrate AdvReac HALLUCINATE Verified 04/01/19 17:15 [From [facility]] ED Review of Systems ROS: Stated complaint: HEADACHE/DIZZINESS Other details as noted in HPI Constitutional: denies: chills, fever Eyes: vision change. denies: eye pain, eye discharge ENT: denies: ear pain, throat pain Respiratory: shortness of breath. denies: cough, wheezing Cardiovascular: dyspnea on exertion. denies: chest pain, palpitations Endocrine: no symptoms reported Gastrointestinal: denies: abdominal pain, nausea, diarrhea Genitourinary: denies: urgency, dysuria, discharge Musculoskeletal: denies: back pain, joint swelling, arthralgia Skin: denies: rash, lesions Neurological: headache, vertigo. denies: weakness, paresthesias Psychiatric: denies: anxiety, depression Hematological/Lymphatic: denies: easy bleeding, easy bruising ED Past Medical Hx - Past Medical History Previous Medical History?: Yes Hx Hypertension: Yes Hx CVA: Yes (no deficits 03/24/16) Hx Heart Attack/AMI: Yes Hx Congestive Heart Failure: Yes Hx Diabetes: Yes (20 YRS) Hx GERD: Yes (GERD) Hx Liver Disease: No Hx Renal Disease: Yes (h/o kidney stones, UTI) Hx Arthritis: Yes Hx COPD: Yes (not on inhalers, denies dyspnea) Hx HIV: No Additional medical history: HIGH CHOLESTEROL. CAD - Surgical History Past Surgical History?: Yes Hx Coronary Stent: Yes (2001) Hx Pacemaker: No Hx Cholecystectomy: Yes (08/18) Hx Appendectomy: Yes Additional Surgical History: right knee replacement, hysterectomy, back surgery, stent in kidney/bladder? - Family History Family history: no significant - Social History Smoking Status: Never Smoker Substance Use Type: None - Medications Home Medications: Home Medications Medication Instructions Recorded Confirmed Last Taken Type Ranitidine HCl [Zantac] 150 mg PO BID 03/24/16 08/12/17 Unknown History Acetaminophen [Acetaminophen TAB] 650 mg PO Q4H PRN #30 tablet 03/27/16 08/12/17 Unknown Rx Aspirin 325 mg PO QDAY #30 tablet 04/11/16 08/12/17 Unknown Rx Atenolol [Tenormin] 100 mg PO DAILY #30 tablet 04/11/16 08/12/17 Unknown Rx AtorvaSTATin [Lipitor] 40 mg PO QDAY #30 tablet 04/11/16 08/12/17 Unknown Rx Duloxetine HCl [Cymbalta] 30 mg PO BID #60 capsule. 04/11/16 08/12/17 Unknown Rx Insulin Glulisine [Apidra] See Protocol SUB-Q ACHS 30 Days 04/11/16 08/12/17 Unknown Rx units Lisinopril 20 mg PO DAILY #30 04/11/16 08/12/17 Unknown Rx Multivitamin Tab [Multiple Vitamin 1 each PO QDAY #30 tablet 04/11/16 08/12/17 Unknown Rx TAB (Theragran)] Norvasc 10 mg PO DAILY #30 04/11/16 08/12/17 Unknown Rx Ranolazine [Ranexa] 500 mg PO BID #60 tab.er.12h 04/11/16 08/12/17 Unknown Rx Sertraline HCl [Zoloft] 25 mg PO QDAY #30 tablet 04/11/16 08/12/17 Unknown Rx Temazepam [Restoril] 15 mg PO QHS PRN #15 capsule 04/11/16 08/12/17 Unknown Rx Azithromycin [Zithromax Z-MELCHOR] 250 mg PO DAILY #6 tablet 01/28/17 08/12/17 Unknown Rx HYDROcodone/APAP 5-325 [[place] 1 each PO Q6HR PRN #10 tablet 08/17/17 Unknown Rx 5/325] levoFLOXacin [Levaquin TAB] 500 mg PO Q24HR #3 tablet 08/17/17 Unknown Rx Cyclobenzaprine HCl [Flexeril 5 MG 5 mg PO TID PRN #30 tab 03/31/18 Unknown Rx TAB] Docusate Sodium [Colace] 100 mg PO BID PRN #20 capsule 03/31/18 Unknown Rx HYDROcodone/APAP 7.5-325 [[place] 1 each PO Q6HR PRN #20 tablet 03/31/18 Unknown Rx 7.5/325] Ibuprofen [Motrin] 600 mg PO Q8H PRN #30 tablet 03/31/18 Unknown Rx Acetaminophen [Tylenol Extra 1,000 mg PO QID PRN #30 tablet 02/20/19 Unknown Rx Strength] Cyclobenzaprine [Flexeril] 10 mg PO BID PRN #20 tablet 02/20/19 Unknown Rx Diclofenac Sodium [Voltaren] 1 applicatio TP QID PRN #1 tube 02/20/19 Unknown Rx predniSONE [Deltasone] 40 mg PO QDAY 5 Days #10 tab 02/20/19 Unknown Rx ED Physical Exam - General Limitations: No Limitations General appearance: alert, in no apparent distress - Head Head exam: Present: atraumatic, normocephalic - Eye Eye exam: Present: normal appearance - ENT ENT exam: Present: mucous membranes moist - Neck Neck exam: Present: normal inspection - Respiratory Respiratory exam: Present: normal lung sounds bilaterally. Absent: respiratory distress - Cardiovascular Cardiovascular Exam: Present: regular rate, normal rhythm. Absent: systolic murmur, diastolic murmur, rubs, gallop - GI/Abdominal GI/Abdominal exam: Present: soft, normal bowel sounds - Extremities Exam Extremities exam: Present: normal inspection (except for bilateral pedal edema), full ROM, normal capillary refill, pedal edema. Absent: tenderness, calf tenderness - Back Exam Back exam: Present: normal inspection - Neurological Exam Neurological exam: Present: alert, oriented X3 - Psychiatric Psychiatric exam: Present: normal affect, normal mood - Skin Skin exam: Present: warm, dry, intact, normal color. Absent: rash ED Course Vital Signs 05/29/19 05/29/19 05/29/19 16:02 18:19 19:21 Temperature 98.8 F Pulse Rate 63 64 64 Respiratory 18 16 18 Rate Blood Pressure 146/83 Blood Pressure 204/84 189/79 [Left] O2 Sat by Pulse 97 96 Oximetry 05/29/19 05/29/19 05/29/19 19:46 20:01 20:35 Temperature 98.1 F Pulse Rate 69 66 Respiratory 13 14 16 Rate Blood Pressure 178/93 Blood Pressure 178/93 [Left] O2 Sat by Pulse 93 93 Oximetry 05/29/19 05/29/19 05/29/19 21:05 21:12 21:30 Temperature 98 F Pulse Rate 68 78 Respiratory 16 16 Rate Blood Pressure 218/89 Blood Pressure 187/78 [Left] O2 Sat by Pulse 95 Oximetry - Reevaluation(s) Reevaluation #1: I discussed all results with patient. Discussed plan of care with patient. Patient will be admitted to the hospitalist service. 05/29/19 19:56 - Consultations Consultation #1: Hospitalist consult for admission. Hospitalist to admit patient. 05/29/19 19:56 ED Medical Decision Making - Lab Data Result diagrams: 05/29/19 16:37 05/29/19 16:37 - EKG Data -: EKG Interpreted by Nv EKG shows normal: sinus rhythm, axis, intervals, QRS complexes, ST-T waves Rate: normal - Radiology Data Radiology results: report reviewed CHEST 1 VIEW, 05/29/2019 7:03 PM INDICATION: Hypertension. Dizziness. Headache. COMPARISON: None FINDINGS: Support devices: None Heart: The cardiac silhouette is within normal limits in size. Lungs/pleura: There is no evidence of focal airspace disease or significant pleural effusion. Additional findings: No additional acute findings. IMPRESSION: 1. No evidence of acute cardiopulmonary process. CT head/brain wo con INDICATION / CLINICAL INFORMATION: 78 years Female; Stroke symptoms. 78-year-old female with headaches TECHNIQUE: Routine CT head without contrast. All CT scans at this location are performed using CT dose reduction for ALARA by means of automated exposure control. COMPARISON: 03/24/2016 FINDINGS: BRAIN / INTRACRANIAL CONTENTS: No acute hemorrhage, mass effect, midline shift, hydrocephalus, or acute, large territorial infarct. Mild to moderate cerebral and cerebellar atrophy. Multiple lacunar infarcts seen in the gangliocapsular regions. Some of these are new from prior exam, but are age- indeterminate without diffusion imaging by MRI.. There are moderate areas of decreased attenuation in the white matter of the cerebral hemispheres, as well as the gangliocapsular regions. These are nonspecific findings and may be related to micr oangiopathy (hypertension, diabetes, atherosclerosis), given the patient's age. It might be difficult to evaluate for small areas of ischemia without diffusion imaging by MRI. Lacunar-type infarct suggested in the mikey-this also seen on prior. CRANIOCERVICAL JUNCTION: No significant abnormality. ORBITS: No significant abnormality of visualized orbits. SINUSES / MASTOIDS: No significant abnormality of the visualized paranasal sinuses or mastoid air cells. ADDITIONAL FINDINGS: Atherosclerotic disease is seen in the anterior and posterior circulation. IMPRESSION: 1. No focal mass, hemorrhage, hydrocephalus, or acute, large territorial infarct. Follow-up with diffusion imaging by MRI, as clinically warranted. Critical Care Time: Yes Critical care attestation.: If time is entered above; I have spent that time in minutes in the direct care of this critically ill patient, excluding procedure time. Critical Care Time: 35 minutes ED Disposition Clinical Impression: Noncompliance, Dizziness, SOB (shortness of breath), MEZA (dyspnea on exertion), Lower extremity edema HTN (hypertension) Qualifiers: Hypertension type: essential hypertension Qualified Code(s): I10 - Essential (primary) hypertension Disposition: OP ADMIT IP TO THIS HOSP Is pt being admited?: Yes Does the pt Need Aspirin: No Condition: Critical Time of Disposition: 19:56
--- NOTE | 2019-05-29 19:20 | Cat Scan Report ---
CT head/brain wo con INDICATION / CLINICAL INFORMATION: 78 years Female; Stroke symptoms. 78-year-old female with headaches TECHNIQUE: Routine CT head without contrast. All CT scans at this location are performed using CT dos e reduction for ALARA by means of automated exposure control. COMPARISON: 03/24/2016 FINDINGS: BRAIN / INTRACRANIAL CONTENTS: No acute hemorrhage, mass effect, midline shift, hydrocephalus, or acu te, large territorial infarct. Mild to moderate cerebral and cerebellar atrophy. Multiple lacunar infarcts seen in the gangliocapsul ar regions. Some of these are new from prior exam, but are age-indeterminate without diffusion imagin g by MRI.. There are moderate areas of decreased attenuation in the white matter of the cerebral hemispheres, as well as the gangliocapsular regions. These are nonspecific findings and may be related to microangio jyotsna (hypertension, diabetes, atherosclerosis), given the patient's age. It might be difficult to ev aluate for small areas of ischemia without diffusion imaging by MRI. Lacunar-type infarct suggested i n the mikey-this also seen on prior. CRANIOCERVICAL JUNCTION: No significant abnormality. ORBITS: No significant abnormality of visualized orbits. SINUSES / MASTOIDS: No significant abnormality of the visualized paranasal sinuses or mastoid air avani ls. ADDITIONAL FINDINGS: Atherosclerotic disease is seen in the anterior and posterior circulation. IMPRESSION: 1. No focal mass, hemorrhage, hydrocephalus, or acute, large territorial infarct. Follow-up with diff usion imaging by MRI, as clinically warranted. Signer Name: Jude Mejia MD, III Signed: 05/29/2019 7:15 PM Workstation Name: [id number]
--- NOTE | 2019-05-29 19:28 | XRay Report ---
CHEST 1 VIEW, 05/29/2019 7:03 PM INDICATION: Hypertension. Dizziness. Headache. COMPARISON: None FINDINGS: Support devices: None Heart: The cardiac silhouette is within normal limits in size. Lungs/pleura: There is no evidence of focal airspace disease or significant pleural effusion. Additional findings: No additional acute findings. IMPRESSION: 1. No evidence of acute cardiopulmonary process. Signer Name: Giselle Teran MD Signed: 05/29/2019 7:24 PM Workstation Name: [id number]
[2019-05-29 19:52] LABS: Bacteria,Urine 1+ /HPF (Negative); Bilirubin,Urine NEG (Negative); Blood,Urine SM (Negative); Color,Urine Yellow (Yellow); Hyaline Casts,Urine 1 /LPF; Mucus,Urine FEW /HPF; Protein,Urine <15 mg/dL mg/dL (Negative); Urobilinogen,Urine < 2.0 mg/dL (<2.0)
[2019-05-29 19:57] LABS: Amphetamine Screen,Urine PRESUMPTIVE NEGATIVE; Benzodiazepines Screen,Urine PRESUMPTIVE NEGATIVE; Cannabinoid Screen,Urine PRESUMPTIVE NEGATIVE; Cocaine Screen,Urine PRESUMPTIVE NEGATIVE; Methadone Screen,Urine PRESUMPTIVE NEGATIVE; Opiate Screen,Urine PRESUMPTIVE NEGATIVE
--- NOTE | 2019-05-29 19:57 | History and Physical Report ---
History of Present Illness Chief complaint: Im short of breath, and I just feel sick History of present illness: 78 YO Female with HTN, CVA, [place], CHF, GERD, OA, COPD, HLD, CAD presents to ED for evaluation. Pt states that she has experienced headache, shortness of breath, and generalized weakness over the past 5 days with worsening symptoms over the past 2 days. Pt states that she is unable to ambulate due to weakness, and dizziness. Pt also reports experiencing near falls. Pt also reports blurred vision IAW headache, shortness of breath, decreased exercise tolerance. Pt is currently unable to independently conduct activities of daily living and is dependent 4/6 for ADL's. Pt acknowledges medication noncompliance due to running out of her medication. Pt transported to [facility] via private vehicle. Pt seen and evaluated in ED and found to have COPD Exacerbation, UTI, Debility. Pt admitted to [facility] unit. Case management consulted in ED for D/C planning and placement. PT consulted in ED. Pt denies fever, chills, CP, palpitations, trauma, BRBPR, skin rash, or recent ill contacts. Prior admission 08/11/17 reviewed. All listed medication reconciled at time of admission. 30 minutes dedicated to advanced care planning. Hx Hypertension: Yes Hx CVA: Yes (no deficits 03/24/16) Hx Heart Attack/AMI: Yes Hx Congestive Heart Failure: Yes Hx Diabetes: Yes (20 YRS) Hx GERD: Yes (GERD) Hx Liver Disease: No Hx Renal Disease: Yes (h/o kidney stones, UTI) Hx Arthritis: Yes Hx COPD: Yes (not on inhalers, denies dyspnea) Hx HIV: No Additional medical history: HIGH CHOLESTEROL. CAD - Surgical History Past Surgical History?: Yes Hx Coronary Stent: Yes (2001) Hx Pacemaker: No Hx Cholecystectomy: Yes (08/18) Hx Appendectomy: Yes Additional Surgical History: right knee replacement, hysterectomy, back surgery, stent in kidney/bladder? - Social History Smoking Status: Never Smoker Substance Use Type: None Medications and Allergies Allergies Allergy/AdvReac Type Severity Reaction Status Date / Time zolpidem tartrate AdvReac HALLUCINATE Verified 04/01/19 17:15 [From Ambien] Home Medications Medication Instructions Recorded Confirmed Last Taken Type Ranitidine HCl [Zantac] 150 mg PO BID 03/24/16 08/12/17 Unknown History Acetaminophen [Acetaminophen TAB] 650 mg PO Q4H PRN #30 tablet 03/27/16 08/12/17 Unknown Rx Aspirin 325 mg PO QDAY #30 tablet 04/11/16 08/12/17 Unknown Rx Atenolol [Tenormin] 100 mg PO DAILY #30 tablet 04/11/16 08/12/17 Unknown Rx AtorvaSTATin [Lipitor] 40 mg PO QDAY #30 tablet 04/11/16 08/12/17 Unknown Rx Duloxetine HCl [Cymbalta] 30 mg PO BID #60 capsule. 04/11/16 08/12/17 Unknown Rx Insulin Glulisine [Apidra] See Protocol SUB-Q ACHS 30 Days 04/11/16 08/12/17 Unknown Rx units Lisinopril 20 mg PO DAILY #30 04/11/16 08/12/17 Unknown Rx Multivitamin Tab [Multiple Vitamin 1 each PO QDAY #30 tablet 04/11/16 08/12/17 Unknown Rx TAB (Theragran)] Norvasc 10 mg PO DAILY #30 04/11/16 08/12/17 Unknown Rx Ranolazine [Ranexa] 500 mg PO BID #60 tab.er.12h 04/11/16 08/12/17 Unknown Rx Sertraline HCl [Zoloft] 25 mg PO QDAY #30 tablet 04/11/16 08/12/17 Unknown Rx Temazepam [Restoril] 15 mg PO QHS PRN #15 capsule 04/11/16 08/12/17 Unknown Rx Azithromycin [Zithromax Z-MELCHOR] 250 mg PO DAILY #6 tablet 01/28/17 08/12/17 Unknown Rx HYDROcodone/APAP 5-325 [[place] 1 each PO Q6HR PRN #10 tablet 08/17/17 Unknown Rx 5/325] levoFLOXacin [Levaquin TAB] 500 mg PO Q24HR #3 tablet 08/17/17 Unknown Rx Cyclobenzaprine HCl [Flexeril 5 MG 5 mg PO TID PRN #30 tab 03/31/18 Unknown Rx TAB] Docusate Sodium [Colace] 100 mg PO BID PRN #20 capsule 03/31/18 Unknown Rx HYDROcodone/APAP 7.5-325 [[place] 1 each PO Q6HR PRN #20 tablet 03/31/18 Unknown Rx 7.5/325] Ibuprofen [Motrin] 600 mg PO Q8H PRN #30 tablet 03/31/18 Unknown Rx Acetaminophen [Tylenol Extra 1,000 mg PO QID PRN #30 tablet 02/20/19 Unknown Rx Strength] Cyclobenzaprine [Flexeril] 10 mg PO BID PRN #20 tablet 02/20/19 Unknown Rx Diclofenac Sodium [Voltaren] 1 applicatio TP QID PRN #1 tube 02/20/19 Unknown Rx predniSONE [Deltasone] 40 mg PO QDAY 5 Days #10 tab 02/20/19 Unknown Rx Exam - Constitutional Vitals: Temp Pulse Resp BP Pulse Ox 98.1 F 69 13 178/93 93 05/29/19 19:46 05/29/19 19:46 05/29/19 19:46 05/29/19 19:46 05/29/19 19:46 Results - Labs CBC & Chem 7: 05/29/19 16:37 05/29/19 16:37 Labs: Abnormal lab results 05/29/19 05/29/19 Range/Units 16:37 16:37 WBC 3.2 L (4.5-11.0) K/mm3 RBC 3.49 L (3.65-5.03) M/mm3 MCV 103 H (79-97) fl MCH 35 H (28-32) pg Lymph % (Auto) 46.2 H (13.4-35.0) % [place] % (Auto) 11.3 H (0.0-7.3) % Seg Neutrophils # 1.3 L (1.8-7.7) K/mm3 Glucose 122 H (65-100) mg/dL Albumin 3.6 L (3.9-5) g/dL
[2019-05-29] MEDS ORDERED: TYLENOL PO PRN ×2 (20:30→20:32)
[2019-05-29] MEDS ORDERED: DILAUDID IV ONE (20:30)
[2019-05-29] MEDS ORDERED: PROVENTIL IH PRN (20:30)
[2019-05-29] MEDS ORDERED: ZOFRAN IV ONE (20:30)
[2019-05-29] MEDS ORDERED: SODIUM CHLORIDE FLUSH SYRINGE 10 ML IV PRN (20:30)
[2019-05-29] MEDS ORDERED: ZOFRAN IV PRN (20:30)
[2019-05-29] MEDS ORDERED: RESTORIL PO PRN (20:32)
[2019-05-29] MEDS ORDERED: DILAUDID ONE (20:32)
[2019-05-29] MEDS ORDERED: DICLOFENAC 1% TP PRN (20:32)
[2019-05-29] MEDS ORDERED: IBUPROFEN PO PRN (20:32)
[2019-05-29] MEDS ORDERED: FLEXERIL PO PRN (20:32)
[2019-05-29] MEDS ORDERED: ZOFRAN ONE (20:32)
[2019-05-29] MEDS ORDERED: APRESOLINE ONE (21:07)
[2019-05-29] MEDS ORDERED: APRESOLINE IV ONE (21:08)
[2019-05-29] MEDS ORDERED: NON-FORMULARY (Ranitidine Hcl [Zantac] 150 MG) PO SCH (22:00)
[2019-05-29] MEDS: COLACE PO SCH (22:20)
[2019-05-29] MEDS: PEPCID PO SCH (22:21)
[2019-05-29] MEDS: CYMBALTA PO SCH (22:21)
[2019-05-29] MEDS: RANEXA ER PO SCH (22:22)
[2019-05-29] MEDS: SODIUM CHLORIDE FLUSH SYRINGE 10 ML IV SCH (22:22)
[2019-05-29 22:31] LABS: Free T4 (Free Thyroxine) 0.88 ng/dL (0.76-1.46)
[2019-05-29] MEDS: PERCOCET 5/325 PO PRN (22:49)
[2019-05-30 06:39] LABS: Hematocrit 38.6 % (30.3-42.9); Hemoglobin 12.9 gm/dl (10.1-14.3); Mean Corpuscular HGB Conc 33 % (30-34); Mean Corpuscular Volume 103 fl (79-97); Red Blood Count 3.74 M/mm3 (3.65-5.03); Red Cell Distribution Width 14.1 % (13.2-15.2)
[2019-05-30 06:56] LABS: Alanine Aminotransferase 23 units/L (7-56); Albumin 3.7 g/dL (3.9-5); BUN/Creatinine Ratio 14; Blood Urea Nitrogen 10 mg/dL (7-17); Calcium 9.8 mg/dL (8.4-10.2); Hemolysis Index 36
[2019-05-30] MEDS: NORCO 5/325 PO PRN ×2 (07:39→18:05)
[2019-05-30 07:59] LABS: Platelet Count 105 K/mm3 (140-440)
[2019-05-30 08:00] LABS: Basophils % (Auto) 0.8 % (0.0-1.8); Eosinophils % (Auto) 1.9 % (0.0-4.3); Lymphocytes # (Auto) 1.6 K/mm3 (1.2-5.4); Lymphocytes % (Auto) 37.4 % (13.4-35.0); Monocytes % (Auto) 11.6 % (0.0-7.3)
[2019-05-30 08:01] LABS: Eosinophils # (Auto) 0.1 K/mm3 (0.0-0.4); Monocytes # (Auto) 0.5 K/mm3 (0.0-0.8)
[2019-05-30] MEDS: NORVASC PO SCH (09:22)
[2019-05-30] MEDS: RANEXA ER PO SCH ×2 (09:22→21:25)
[2019-05-30] MEDS: ZOLOFT PO SCH (09:23)
[2019-05-30] MEDS: COLACE PO SCH ×2 (09:24→21:25)
[2019-05-30] MEDS: CYMBALTA PO SCH ×2 (09:24→21:24)
[2019-05-30] MEDS: PEPCID PO SCH ×2 (09:24→21:26)
[2019-05-30] MEDS: THERAGRAN Tab PO SCH (09:25)
[2019-05-30] MEDS: COREG PO SCH ×2 (09:25→21:25)
[2019-05-30] MEDS: ASPIRIN PO SCH (09:25)
[2019-05-30] MEDS: ZESTRIL PO SCH (09:25)
--- NOTE | 2019-05-30 09:26 | Progress Note ---
Assessment and Plan - Patient Problems (1) COPD exacerbation Current Visit: Yes Status: Acute Plan to address problem: Cont duonebs and solumedroland levaquin (2) Debility Current Visit: Yes Status: Acute Plan to address problem: Probably sec to statins Will stop statins will get PT/OT (3) IDDM (insulin dependent diabetes mellitus) Current Visit: Yes Status: Acute Plan to address problem: Cont home insulin and coverage Check A1c (4) HTN (hypertension) Current Visit: No Status: Chronic Qualifiers: Hypertension type: essential hypertension Qualified Code(s): I10 - Essential (primary) hypertension Plan to address problem: Cont antihypertensives (5) Depression Current Visit: Yes Status: Chronic Qualifiers: Depression Type: unspecified Qualified Code(s): F32.9 - Major depressive disorder, single episode, unspecified Plan to address problem: cont antidepressants (6) GERD (gastroesophageal reflux disease) Current Visit: Yes Status: Chronic Qualifiers: Esophagitis presence: without esophagitis Qualified Code(s): K21.9 - Gastro-esophageal reflux disease without esophagitis Plan to address problem: Cont famotidine (7) DVT prophylaxis Current Visit: No Status: Acute Plan to address problem: On Lovenox and GI prophylaxis Subjective Date of service: 05/30/19 Principal diagnosis: Severe debility and Copd exacerbation Interval history: 78 YO Female with HTN, CVA, [place], CHF, GERD, OA, COPD, HLD, CAD presents to ED for evaluation. Pt states that she has experienced headache, shortness of breath, and generalized weakness over the past 5 days with worsening symptoms over the past 2 days. Pt states that she is unable to ambulate due to weakness, and dizziness. Pt also reports experiencing near falls. Pt also reports blurred vision IAW headache, shortness of breath, decreased exercise tolerance. Pt is currently unable to independently conduct activities of daily living and is dependent 4/6 for ADL's. Pt acknowledges medication noncompliance due to running out of her medication. Pt transported to [facility] via private vehicle. Pt seen and evaluated in ED and found to have COPD Exacerbation, UTI, Debility. Complaints of headache. Objective - Constitutional Vitals: Vital Signs - 12hr 05/29/19 05/30/19 05/30/19 21:30 02:29 07:44 Temperature 98 F 98.5 F Pulse Rate 78 79 Respiratory 16 18 Rate Blood Pressure 169/87 Blood Pressure 187/78 [Left] O2 Sat by Pulse 95 97 98 Oximetry 05/30/19 05/30/19 08:03 09:07 Temperature 98.5 F Pulse Rate 70 Respiratory 20 20 Rate Blood Pressure 162/73 Blood Pressure [Left] O2 Sat by Pulse 93 Oximetry General appearance: Present: no acute distress, well-nourished - EENT Eyes: PERRL, EOM intact ENT: hearing intact, clear oral mucosa Ears: bilateral: normal - Neck Neck: supple, normal ROM - Respiratory Respiratory effort: normal Respiratory: bilateral: CTA - Breasts Breasts: normal - Cardiovascular Rhythm: regular Heart Sounds: Present: S1 & S2. Absent: gallop, rub Extremities: pulses intact, No edema, normal color, Full ROM - Gastrointestinal General gastrointestinal: Present: soft, non-tender, non-distended, normal bowel sounds - Genitourinary Female genitourinary: normal - Integumentary Integumentary: clear, warm, dry - Musculoskeletal Musculoskeletal: strength equal bilaterally, generalized weakness - Neurologic Neurologic: moves all extremities - Psychiatric Psychiatric: memory intact, appropriate mood/affect, intact judgment & insight - Allied health notes Allied health notes reviewed: nursing, case management - Labs CBC & Chem 7: 05/30/19 05:32 05/30/19 05:32 Labs: Abnormal lab results 05/29/19 05/29/19 05/30/19 Range/Units 16:37 16:37 05:32 WBC 3.2 L 4.2 L (4.5-11.0) K/mm3 RBC 3.49 L (3.65-5.03) M/mm3 MCV 103 H 103 H (79-97) fl MCH 35 H 34 H (28-32) pg Plt Count 105 L (140-440) K/mm3 Lymph % (Auto) 46.2 H 37.4 H (13.4-35.0) % [place] % (Auto) 11.3 H 11.6 H (0.0-7.3) % Seg Neutrophils # 1.3 L (1.8-7.7) K/mm3 Glucose 122 H (65-100) mg/dL Albumin 3.6 L (3.9-5) g/dL 05/30/19 Range/Units 05:32 WBC (4.5-11.0) K/mm3 RBC (3.65-5.03) M/mm3 MCV (79-97) fl MCH (28-32) pg Plt Count (140-440) K/mm3 Lymph % (Auto) (13.4-35.0) % [place] % (Auto) (0.0-7.3) % Seg Neutrophils # (1.8-7.7) K/mm3 Glucose (65-100) mg/dL Albumin 3.7 L (3.9-5) g/dL
[2019-05-30] MEDS: SODIUM CHLORIDE FLUSH SYRINGE 10 ML IV SCH ×2 (09:33→21:28)
[2019-05-30] MEDS ORDERED: TENORMIN PO SCH (10:00)
[2019-05-30] MEDS ORDERED: NON-FORMULARY (Norvasc 10 MG) PO SCH (10:00)
[2019-05-30] MEDS ORDERED: DELTASONE PO SCH (10:00)
[2019-05-30] MEDS ORDERED: SOLU-Medrol IV SCH (10:00)
[2019-05-30] MEDS ORDERED: NON-FORMULARY (Atenolol [Tenormin] 100 MG) PO SCH (10:00)
[2019-05-30] MEDS ORDERED: NON-FORMULARY (Lisinopril 20 MG) PO SCH (10:00)
[2019-05-30] MEDS: LEVAQUIN 750MG/150ML 750 MG/150 ML BAG IV SCH (11:58)
[2019-05-30] MEDS: PERCOCET 5/325 PO PRN ×2 (11:59→21:23)
[2019-05-30] MEDS: DUONEB *Not for PRN Use IH SCH ×3 (14:57→20:55)
[2019-05-30] MEDS: SOLU-Medrol IV SCH (17:56)
[2019-05-30] MEDS: HumaLOG SUB-Q SCH (21:57)
[2019-05-31] MEDS: SOLU-Medrol IV SCH ×3 (03:18→18:29)
[2019-05-31] MEDS: DUONEB *Not for PRN Use IH SCH ×3 (07:22→20:02)
[2019-05-31] MEDS: CYMBALTA PO SCH ×2 (09:50→21:44)
[2019-05-31] MEDS: ASPIRIN PO SCH (09:50)
[2019-05-31] MEDS: RANEXA ER PO SCH ×2 (09:50→21:44)
[2019-05-31] MEDS: ZOLOFT PO SCH (09:51)
[2019-05-31] MEDS: THERAGRAN Tab PO SCH (09:52)
[2019-05-31] MEDS: ZESTRIL PO SCH (09:52)
[2019-05-31] MEDS: PEPCID PO SCH ×2 (09:52→21:44)
[2019-05-31] MEDS: COREG PO SCH ×2 (09:53→21:44)
[2019-05-31] MEDS: NORVASC PO SCH (09:53)
[2019-05-31] MEDS: COLACE PO SCH ×2 (09:54→21:44)
[2019-05-31] MEDS: SODIUM CHLORIDE FLUSH SYRINGE 10 ML IV SCH ×2 (09:54→21:45)
[2019-05-31] MEDS: HumaLOG SUB-Q SCH ×4 (10:28→21:49)
--- NOTE | 2019-05-31 11:13 | Progress Note ---
Assessment and Plan Assessment and plan: COPD exacerbation Contionue solumedrol iv Duoneb Hypertemnsion Monitor BP Diabetes mellitust type 2 fingerstick q ac and hs Full code status History Interval history: Shortness of breath Hospitalist Physical - Physical exam Narrative exam: Gen: Not in acute distress, sitting up in bed, HEENT: Normocephalic, atraumatic Neck: supple, no JVD Heart: S1 and S2 reg, no murmurs, rubs or gallop Lungs: Bilateral rhonchi, wheeze Abd: soft, non tender, non distended, normal BS, Ext: No edema, no clubbing, no cyanosis Neuro: Awake,alert, Oriented X 3. No focal neuro signs Psych: normal mood - Constitutional Vitals: Temp Pulse Resp BP Pulse Ox 98.5 F 76 18 152/75 95 05/31/19 01:53 05/31/19 09:53 05/31/19 07:23 05/31/19 09:53 05/31/19 07:24 General appearance: Present: no acute distress, well-nourished Results - Labs CBC & Chem 7: 05/30/19 05:32 05/30/19 05:32 Labs: Laboratory Last Values WBC 4.2 K/mm3 (4.5-11.0) L 05/30/19 05:32 RBC 3.74 M/mm3 (3.65-5.03) 05/30/19 05:32 Hgb 12.9 gm/dl (10.1-14.3) 05/30/19 05:32 Hct 38.6 % (30.3-42.9) 05/30/19 05:32 MCV 103 fl (79-97) H 05/30/19 05:32 MCH 34 pg (28-32) H 05/30/19 05:32 MCHC 33 % (30-34) 05/30/19 05:32 RDW 14.1 % (13.2-15.2) 05/30/19 05:32 Plt Count 105 K/mm3 (140-440) L 05/30/19 05:32 Lymph % (Auto) 37.4 % (13.4-35.0) H 05/30/19 05:32 [place] % (Auto) 11.6 % (0.0-7.3) H 05/30/19 05:32 Eos % (Auto) 1.9 % (0.0-4.3) 05/30/19 05:32 Baso % (Auto) 0.8 % (0.0-1.8) 05/30/19 05:32 Lymph # 1.6 K/mm3 (1.2-5.4) 05/30/19 05:32 [place] # 0.5 K/mm3 (0.0-0.8) 05/30/19 05:32 Eos # 0.1 K/mm3 (0.0-0.4) 05/30/19 05:32 Baso # 0.0 K/mm3 (0.0-0.1) 05/30/19 05:32 Add Manual Diff Complete 05/30/19 05:32 Seg Neutrophils % 48.3 % (40.0-70.0) 05/30/19 05:32 Seg Neutrophils # 2.0 K/mm3 (1.8-7.7) 05/30/19 05:32 PT 13.3 Sec. (12.2-14.9) 05/29/19 16:37 INR 1.04 (0.87-1.13) 05/29/19 16:37 APTT 25.9 Sec. (24.2-36.6) 05/29/19 16:37 17.3 Sec. (15.1-19.6) 05/29/19 16:37 Sodium 140 mmol/L (137-145) 05/30/19 05:32 Potassium 4.2 mmol/L (3.6-5.0) 05/30/19 05:32 Chloride 104.9 mmol/L (98-107) 05/30/19 05:32 Carbon Dioxide 24 mmol/L (22-30) 05/30/19 05:32 15 mmol/L 05/30/19 05:32 BUN 10 mg/dL (7-17) 05/30/19 05:32 0.7 mg/dL (0.7-1.2) 05/30/19 05:32 Estimated GFR > 60 ml/min 05/30/19 05:32 14 % 05/30/19 05:32 Glucose 87 mg/dL (65-100) 05/30/19 05:32 POC Glucose 197 (70-105) H 05/31/19 10:27 Calcium 9.8 mg/dL (8.4-10.2) 05/30/19 05:32 0.90 mg/dL (0.1-1.2) 05/30/19 05:32 AST 25 units/L (5-40) 05/30/19 05:32 ALT 23 units/L (7-56) 05/30/19 05:32 86 units/L (35-129) 05/30/19 05:32 79 units/L (30-135) 05/29/19 16:37 CK-MB (CK-2) 1.6 ng/mL (0.0-4.0) 05/29/19 16:37 CK-MB (CK-2) Rel Index 2.0 (0-4) 05/29/19 16:37 < 0.010 ng/mL (0.00-0.029) 05/29/19 16:37 NT-Pro-B Natriuret Pep 403.3 pg/mL (0-900) 05/29/19 16:37 6.9 g/dL (6.3-8.2) 05/30/19 05:32 3.7 g/dL (3.9-5) L 05/30/19 05:32 1.2 % 05/30/19 05:32 TSH 2.190 mlU/mL (0.270-4.200) 05/29/19 21:43 Free T4 0.88 ng/dL (0.76-1.46) 05/29/19 21:43 Yellow (Yellow) 05/29/19 19:36 Clear (Clear) 05/29/19 19:36 6.0 (5.0-7.0) 05/29/19 19:36 Ur Specific Velva 1.009 (1.003-1.030) 05/29/19 19:36 <15 mg/dl mg/dL (Negative) 05/29/19 19:36 Neg mg/dL (Negative) 05/29/19 19:36 Neg mg/dL (Negative) 05/29/19 19:36 Sm (Negative) 05/29/19 19:36 Pos (Negative) 05/29/19 19:36 Neg (Negative) 05/29/19 19:36 < 2.0 mg/dL (<2.0) 05/29/19 19:36 Ur Leukocyte Esterase Tr (Negative) 05/29/19 19:36 2.0 /HPF (0.0-6.0) 05/29/19 19:36 1.0 /HPF (0.0-6.0) 05/29/19 19:36 U Epithel Cells (Auto) 2.0 /HPF (0-13.0) 05/29/19 19:36 1+ /HPF (Negative) 05/29/19 19:36 Hyaline Casts 1 /LPF 05/29/19 19:36 Few /HPF 05/29/19 19:36 Presumptive negative 05/29/19 19:36 Presumptive negative 05/29/19 19:36 Ur Barbiturates Screen Presumptive negative 05/29/19 19:36 Ur Phencyclidine Scrn Presumptive negative 05/29/19 19:36 Ur Amphetamines Screen Presumptive negative 05/29/19 19:36 U Benzodiazepines Scrn Presumptive negative 05/29/19 19:36 Presumptive negative 05/29/19 19:36 U Marijuana (THC) Screen Presumptive negative 05/29/19 19:36 Disclamer 05/29/19 19:36 Active Medications - Current Medications Current Medications: Generic Name Dose Route Start Last Admin Trade Name Freq PRN Reason Stop Dose Admin Acetaminophen 650 mg 05/29/19 20:30 Tylenol PO Q4H PRN Pain MILD(1-3)/Fever >100.5/LEAHY Acetaminophen/Hydrocodone Bitart 1 each 05/29/19 20:32 05/30/19 18:05 [place] 5/325 PO 1 each Q6HR PRN Administration Pain Albuterol 2.5 mg 05/29/19 20:30 Proventil IH Q4HRT PRN Shortness Of Breath Albuterol/Ipratropium 1 ampul 05/30/19 20:00 05/31/19 07:22 Duoneb *Not For Prn Use* IH 1 ampul TIDRT BRONSON Administration Amlodipine Besylate 10 mg 05/30/19 10:00 05/31/19 09:53 Norvasc PO 10 mg DAILY BRONSON Administration Aspirin 325 mg 05/30/19 10:00 05/31/19 09:50 Aspirin PO 325 mg QDAY BRONSON Administration Carvedilol 25 mg 05/30/19 10:00 05/31/19 09:53 Coreg PO 25 mg BID BRONSON Administration Cyclobenzaprine HCl 10 mg 05/29/19 20:32 Flexeril PO BID PRN Muscle Spasm Diclofenac Sodium 1 applic 05/29/19 20:32 Diclofenac 1% TP QID PRN pain Docusate Sodium 100 mg 05/29/19 22:00 05/31/19 09:54 Colace PO 100 mg BID BRONSON Administration Duloxetine HCl 30 mg 05/29/19 22:00 05/31/19 09:50 Cymbalta PO 30 mg BID BRONSON Administration Famotidine 20 mg 05/29/19 22:00 05/31/19 09:52 Pepcid PO 20 mg BID BRONSON Administration Levofloxacin/Dextrose 750 mg in 150 mls @ 100 mls/hr 05/30/19 12:00 05/30/19 11:58 Levaquin 750mg/150ml IV 100 mls/hr Q24H BRONSON Administration Protocol Ibuprofen 600 mg 05/29/19 20:32 Ibuprofen PO Q8H PRN Pain Insulin Human Lispro 0 unit 05/30/19 22:00 05/31/19 10:28 Humalog SUB-Q 2 unit ACHS BRONSON Administration Protocol Lisinopril 20 mg 05/30/19 10:00 05/31/19 09:52 Zestril PO 20 mg QDAY BRONSON Administration Methylprednisolone Sodium Succinate 40 mg 05/30/19 18:00 05/31/19 03:18 Solu-Medrol IV 40 mg Q8H BRONSON Administration Multivitamins 1 each 05/30/19 10:00 05/31/19 09:52 Theragran Tab PO 1 each QDAY BRONSON Administration Ondansetron HCl 4 mg 05/29/19 20:30 Zofran IV Q8H PRN Nausea And Vomiting Oxycodone/Acetaminophen 1 tab 05/29/19 20:30 05/30/19 21:23 Percocet 5/325 PO 1 tab Q6H PRN Administration Pain, Moderate (4-6) Ranolazine 500 mg 05/29/19 22:00 05/31/19 09:50 Ranexa Er PO 500 mg BID RBONSON Administration Sertraline HCl 25 mg 05/30/19 10:00 05/31/19 09:51 Zoloft PO 25 mg QDAY BRONSON Administration Sodium Chloride 10 ml 05/29/19 22:00 05/31/19 09:54 Sodium Chloride Flush Syringe 10 Ml IV 10 ml BID BRONSON Administration Sodium Chloride 10 ml 05/29/19 20:30 Sodium Chloride Flush Syringe 10 Ml IV PRN PRN LINE FLUSH Temazepam 15 mg 05/29/19 20:32 05/30/19 21:23 Restoril PO 15 mg QHS PRN Administration Sleep
[2019-05-31] MEDS: LEVAQUIN 750MG/150ML 750 MG/150 ML BAG IV SCH (13:13)
[2019-05-31] MEDS: PERCOCET 5/325 PO PRN (19:20)
[2019-06-01] MEDS: SOLU-Medrol IV SCH ×2 (01:53→10:00)
[2019-06-01] MEDS: PERCOCET 5/325 PO PRN (01:53)
[2019-06-01] MEDS: DUONEB *Not for PRN Use IH SCH ×2 (07:57→14:13)
[2019-06-01] MEDS: HumaLOG SUB-Q SCH ×2 (08:30→14:15)
[2019-06-01] MEDS: COLACE PO SCH (09:22)
[2019-06-01] MEDS: ASPIRIN PO SCH (09:22)
[2019-06-01] MEDS: RANEXA ER PO SCH (09:22)
[2019-06-01] MEDS: CYMBALTA PO SCH (09:22)
[2019-06-01] MEDS: ZOLOFT PO SCH (09:23)
[2019-06-01] MEDS: COREG PO SCH (09:25)
[2019-06-01] MEDS: THERAGRAN Tab PO SCH (09:25)
[2019-06-01] MEDS: ZESTRIL PO SCH (09:26)
[2019-06-01] MEDS: PEPCID PO SCH (09:26)
[2019-06-01] MEDS: NORVASC PO SCH (09:26)
[2019-06-01] MEDS: SODIUM CHLORIDE FLUSH SYRINGE 10 ML IV SCH (09:27)
[2019-06-01 13:49] VITALS: BP 153/60
[2019-06-01] MEDS: LEVAQUIN 750MG/150ML 750 MG/150 ML BAG IV SCH (14:16)
--- NOTE | 2019-06-01 15:02 | Discharge Summary ---
Providers - Providers Date of Admission: 05/29/19 20:30 Date of discharge: 06/01/19 Attending physician: VLADISLAV MANN 05/29/19 Consult to Case Management [CONS] Routine Services Needed at Discharge: Other Notified:: YES Phone number called:: [phone] Was contact made?: Yes If yes, spoke with:: RICCO Time called:: 14:17 Comment:: SAMMY Additional Physician Instructions: Please send out for SNF/SKILLED NURSING/Rehab placement 05/30/19 09:31 Physical Therapy Evaluation and Treat [CONS] Routine Comment: Reason For Exam: debility Primary care physician: [employer] Hospitalization Condition: Fair Disposition: DC-01 TO HOME OR SELFCARE Exam - Constitutional Vitals: Temp Pulse Resp BP Pulse Ox 98.4 F 78 18 153/60 98 06/01/19 13:12 06/01/19 14:05 06/01/19 14:05 06/01/19 13:12 06/01/19 13:12 Plan Activity: advance as tolerated Diet: low fat, low cholesterol, diabetic Additional Instructions: 1.Follow up with PCP in 1 week. Follow up with: PRIMARY CAREMD [Primary Care Provider] - 7 Days
== END 2019-06-01 15:00 | DRG 191 ==
LOC: ED 15:50 → 2B-ACE 20:30
PROVIDERS: ADMIT Internal Medicine; ATTEND Internal Medicine
DX: J44.1 Chronic obstructive pulmonary disease with (acute) exacerbation (principal); N39.0 Urinary tract infection, site not specified; F32.9 Major depressive disorder, single episode, unspecified; R53.81 Other malaise; E11.9 Type 2 diabetes mellitus without complications; I11.0 Hypertensive heart disease with heart failure; I50.9 Heart failure, unspecified; M19.90 Unspecified osteoarthritis, unspecified site; I25.10 Atherosclerotic heart disease of native coronary artery without angina pectoris; Z96.651 Presence of right artificial knee joint; K21.9 Gastro-esophageal reflux disease without esophagitis; Z79.4 Long term (current) use of insulin; I25.2 Old myocardial infarction; Z86.73 Personal history of transient ischemic attack (TIA), and cerebral infarction without residual deficits; Z87.442 Personal history of urinary calculi; Z95.5 Presence of coronary angioplasty implant and graft; Z90.49 Acquired absence of other specified parts of digestive tract; Z90.710 Acquired absence of both cervix and uterus; Z79.899 Other long term (current) drug therapy; Z79.82 Long term (current) use of aspirin; Z91.14 Patient's other noncompliance with medication regimen
CPT/HCPCS: 36415; 70450; 71045; 80053; 80307; 81001; 82550; 82553; 82962; 83880; 84439; 84443; 84484; 85025; 85610; 85670; 85730; 93005; 93010; 94640; 96374; 96375; G0378; A9270-GY; J0360; J1170; J1815; J1956; J2405; J2920

== ENCOUNTER 2019-12-21 12:18 | Emergency (ER) | payer MEDICARE | END 2019-12-21 13:03 | disposition left against medical advice (07) | LOC: ED 12:18 | DX: R07.89 Other chest pain (principal); Z53.21 Procedure and treatment not carried out due to patient leaving prior to being seen by health care provider ==

== ENCOUNTER 2020-04-09 11:09 | Emergency (ER) | payer MEDICARE ==
[2020-04-09 11:25] VITALS: BP 147/79
== END 2020-04-09 13:06 | disposition home or self-care (01) ==
LOC: ED 11:09
DX: M25.511 Pain in right shoulder (principal); I11.0 Hypertensive heart disease with heart failure; I50.9 Heart failure, unspecified; I25.2 Old myocardial infarction; E11.9 Type 2 diabetes mellitus without complications; K21.9 Gastro-esophageal reflux disease without esophagitis; M19.91 Primary osteoarthritis, unspecified site; J44.9 Chronic obstructive pulmonary disease, unspecified; Z90.49 Acquired absence of other specified parts of digestive tract; Z90.710 Acquired absence of both cervix and uterus; Z98.890 Other specified postprocedural states; Z79.1 Long term (current) use of non-steroidal anti-inflammatories (NSAID); Z79.4 Long term (current) use of insulin; Z79.899 Other long term (current) drug therapy; Z88.8 Allergy status to other drugs, medicaments and biological substances

== ENCOUNTER 2020-09-16 11:54 | Emergency (ER) | payer MEDICARE ==
--- NOTE | 2020-09-16 12:08 | Event Note ---
ED Screening Note Date of service: 09/16/20 Time: 12:07 ED Screening Note: 80-year-old -[place] female presents to the emergency room complaining of a headache that she has had for a month. Patient states she took Tylenol last night. Patient has not followed up with her primary care provider. She had a stroke December 2019. She reports she took her blood pressure medication this morning around 8 AM. Blood pressure was noted to be 196/90 in triage. Patient denies any new weaknesses. She does have residual right side weakness from her stroke and 2019. This initial assessment/diagnostic orders/clinical plan/treatment(s) is/are subject to change based on patients health status, clinical progression and re- assessment by fellow clinical providers in the ED. Further treatment and workup at subsequent clinical providers discretion. Patient/guardian urged not to elope from the ED as their condition may be serious if not clinically assessed and managed. Initial orders include:
--- NOTE | 2020-09-16 18:06 | Emergency Department Report ---
ED Headache HPI - General Chief Complaint: Headache Stated Complaint: HEADACHE/ WEAKNESS Time Seen by Provider: 09/16/20 17:56 Source: patient, old records Exam Limitations: no limitations - History of Present Illness Initial Comments: CC: headache HPI. Mrs. Garrett is an 80 yo female with hx of CVA, HTN, CAD, hyperlipidemia, GERD, chronic pain disorder, DM, COPD, depression who presents with left-sided headache for one month. She has hx of previous headache in similar fashion. She has run out of her "pain pills". Pain is mild, throbbing. NO vomiting. NO new weakness. She has left sided hemiparesis due to previous stroke. She explains that she has had 4 previous strokes. She denies any associated concerns. Timing/Duration: other (1 month) Quality: mild Head Injury Location: temporal, occipital Recent Head Trauma: occasional headaches Associated Symptoms: denies symptoms Allergies/Adverse Reactions: Allergies zolpidem tartrate [From Ambien] Adverse Reaction (Verified 09/16/20 11:56) HALLUCINATE Home Medications: Ambulatory Orders Ranitidine HCl [Zantac] 150 mg PO BID 03/24/16 Acetaminophen [Acetaminophen TAB] 650 mg PO Q4H PRN #30 tablet 03/27/16 Aspirin 325 mg PO QDAY #30 tablet 04/11/16 Atenolol [Tenormin] 100 mg PO DAILY #30 tablet 04/11/16 AtorvaSTATin [Lipitor] 40 mg PO QDAY #30 tablet 04/11/16 Duloxetine HCl [Cymbalta] 30 mg PO BID #60 capsule. 04/11/16 Insulin Glulisine [Apidra] See Protocol SUB-Q ACHS 30 Days units 04/11/16 Lisinopril 20 mg PO DAILY #30 04/11/16 Multivitamin Tab [Multiple Vitamin TAB (Theragran)] 1 each PO QDAY #30 tablet 04/11/16 Norvasc 10 mg PO DAILY #30 04/11/16 Ranolazine [Ranexa] 500 mg PO BID #60 tab.er.12h 04/11/16 Sertraline HCl [Zoloft] 25 mg PO QDAY #30 tablet 04/11/16 Temazepam [Restoril] 15 mg PO QHS PRN #15 capsule 04/11/16 Cyclobenzaprine HCl [Flexeril 5 MG TAB] 5 mg PO TID PRN #30 tab 03/31/18 Docusate Sodium [Colace CAP] 100 mg PO BID PRN #20 capsule 03/31/18 HYDROcodone/APAP 7.5-325 [[place] 7.5-325 mg TAB] 1 each PO Q6HR PRN #20 tablet 03/31/18 Ibuprofen [Motrin 600 MG tab] 600 mg PO Q8H PRN #30 tablet 03/31/18 Cyclobenzaprine [Flexeril 10 MG TAB] 10 mg PO BID PRN #20 tablet 02/20/19 Diclofenac Sodium [Voltaren] 1 applicatio TP QID PRN #1 tube 02/20/19 Albuterol Sulfate [Proair Respiclick] 90 mcg IH Q4H PRN #1 pump 06/01/19 Prednisone [predniSONE 5 mg (6-Day Pack, 21 Tabs)] 5 mg PO .TAPER #1 tab.ds.pk 06/01/19 HYDROcodone/APAP 7.5-325 [[place] 7.5/325] 1 each PO Q6HR PRN #10 tablet 09/16/20 ED Review of Systems ROS: Stated complaint: HEADACHE/ WEAKNESS Other details as noted in HPI Comment: All other systems reviewed and negative Respiratory: denies: cough, shortness of breath Cardiovascular: denies: chest pain Gastrointestinal: denies: abdominal pain, nausea, vomiting Neurological: headache. denies: numbness, paresthesias ED Past Medical Hx - Past Medical History Previous Medical History?: Yes Hx Hypertension: Yes Hx CVA: Yes (WEAKNESS ON RIGHT SIDE FROM CVA 2019) Hx Heart Attack/AMI: Yes Hx Congestive Heart Failure: Yes Hx Diabetes: Yes (20 YRS) Hx GERD: Yes (GERD) Hx Liver Disease: No Hx Renal Disease: Yes (h/o kidney stones, UTI) Hx Arthritis: Yes Hx Kidney Stones: Yes Hx COPD: Yes (not on inhalers, denies dyspnea) Hx HIV: No Additional medical history: HIGH CHOLESTEROL. CAD - Surgical History Past Surgical History?: Yes Hx Coronary Stent: Yes (2001) Hx Pacemaker: No Hx Cholecystectomy: Yes (08/18) Hx Appendectomy: Yes Additional Surgical History: right knee replacement, hysterectomy, back surgery, stent in kidney/bladder? - Social History Smoking Status: Never Smoker Substance Use Type: None - Medications Home Medications: Home Medications Medication Instructions Recorded Confirmed Last Taken Type Ranitidine HCl [Zantac] 150 mg PO BID 03/24/16 08/12/17 Unknown History Acetaminophen [Acetaminophen TAB] 650 mg PO Q4H PRN #30 tablet 03/27/16 08/12/17 Unknown Rx Aspirin 325 mg PO QDAY #30 tablet 04/11/16 08/12/17 Unknown Rx Atenolol [Tenormin] 100 mg PO DAILY #30 tablet 04/11/16 08/12/17 Unknown Rx AtorvaSTATin [Lipitor] 40 mg PO QDAY #30 tablet 04/11/16 08/12/17 Unknown Rx Duloxetine HCl [Cymbalta] 30 mg PO BID #60 capsule. 04/11/16 08/12/17 Unknown Rx Insulin Glulisine [Apidra] See Protocol SUB-Q ACHS 30 Days 04/11/16 08/12/17 Unknown Rx units Lisinopril 20 mg PO DAILY #30 04/11/16 08/12/17 Unknown Rx Multivitamin Tab [Multiple Vitamin 1 each PO QDAY #30 tablet 04/11/16 08/12/17 Unknown Rx TAB (Theragran)] Norvasc 10 mg PO DAILY #30 04/11/16 08/12/17 Unknown Rx Ranolazine [Ranexa] 500 mg PO BID #60 tab.er.12h 04/11/16 08/12/17 Unknown Rx Sertraline HCl [Zoloft] 25 mg PO QDAY #30 tablet 04/11/16 08/12/17 Unknown Rx Temazepam [Restoril] 15 mg PO QHS PRN #15 capsule 04/11/16 08/12/17 Unknown Rx Cyclobenzaprine HCl [Flexeril 5 MG 5 mg PO TID PRN #30 tab 03/31/18 Unknown Rx TAB] Docusate Sodium [Colace CAP] 100 mg PO BID PRN #20 capsule 03/31/18 Unknown Rx HYDROcodone/APAP 7.5-325 [[place] 1 each PO Q6HR PRN #20 tablet 03/31/18 Unknown Rx 7.5-325 mg TAB] Ibuprofen [Motrin 600 MG tab] 600 mg PO Q8H PRN #30 tablet 03/31/18 Unknown Rx Cyclobenzaprine [Flexeril 10 MG 10 mg PO BID PRN #20 tablet 02/20/19 Unknown Rx TAB] Diclofenac Sodium [Voltaren] 1 applicatio TP QID PRN #1 tube 02/20/19 Unknown Rx Albuterol Sulfate [Proair 90 mcg IH Q4H PRN #1 pump 06/01/19 Unknown Rx Respiclick] Prednisone [predniSONE 5 mg (6-Day 5 mg PO .TAPER #1 tab.ds.pk 06/01/19 Unknown Rx Pack, 21 Tabs)] HYDROcodone/APAP 7.5-325 [[place] 1 each PO Q6HR PRN #10 tablet 09/16/20 Unknown Rx 7.5/325] ED Physical Exam - General Limitations: No Limitations General appearance: alert, in no apparent distress, other (smiling, pleasant) - Head Head exam: Present: atraumatic, normocephalic - Eye Eye exam: Present: normal appearance - ENT ENT exam: Present: mucous membranes moist - Neck Neck exam: Present: normal inspection, full ROM - Respiratory Respiratory exam: Present: normal lung sounds bilaterally. Absent: respiratory distress, wheezes, rales, rhonchi - Cardiovascular Cardiovascular Exam: Present: regular rate, normal rhythm, normal heart sounds. Absent: systolic murmur, diastolic murmur, rubs, gallop - GI/Abdominal GI/Abdominal exam: Present: soft, normal bowel sounds. Absent: distended, tenderness, guarding, rebound - Extremities Exam Extremities exam: Present: normal inspection - Neurological Exam Neurological exam: Present: alert, oriented X3 - Psychiatric Psychiatric exam: Present: normal affect, normal mood - Skin Skin exam: Present: warm, dry, intact, normal color. Absent: rash ED Course Vital Signs 09/16/20 09/16/20 12:01 16:21 Temperature 98.3 F 98.5 F Pulse Rate 71 90 Respiratory 18 18 Rate Blood Pressure 196/97 Blood Pressure 145/91 [Right] O2 Sat by Pulse 97 100 Oximetry ED Medical Decision Making - Medical Decision Making Mrs. Garrett has several medical conditions including CVA, HTN, IDDM, cardiac disease. She presents with one month of headache. She also has chronic pain disorder according to EMR. I do not suspect dangerous form of headache such as ICH, temporal arteritis, or acute glaucoma. She is well, smiling, pleasant. I will provide prescription for 10 tabs of [place]., Hypertensive Urgency: clinically no indication of end organ damage. Patient is dc'd home. Vital Signs - 8 hr 09/16/20 09/16/20 12:01 16:21 Temperature 98.3 F 98.5 F Pulse Rate 71 90 Respiratory 18 18 Rate Blood Pressure 196/97 Blood Pressure 145/91 [Right] O2 Sat by Pulse 97 100 Oximetry Critical care attestation.: If time is entered above; I have spent that time in minutes in the direct care of this critically ill patient, excluding procedure time. ED Disposition Clinical Impression: Headache, Hypertensive urgency Disposition: DC- TO HOME OR SELFCARE Is pt being admited?: No Does the pt Need Aspirin: No Condition: Stable Prescriptions: HYDROcodone/APAP 7.5-325 [[place] 7.5/325] 1 each PO Q6HR PRN #10 tablet PRN Reason: Pain Referrals: PRIMARY CARE, [Primary Care Provider] - 3-5 Days
[2020-09-16] MEDS ORDERED: HYDROcodone/ACETAMINOPHEN 5-325 MG TAB PO ONE (18:08)
[2020-09-16 18:18] VITALS: BP 167/100
== END 2020-09-16 18:56 | disposition home or self-care (01) ==
LOC: ED 11:54
DX: I16.0 Hypertensive urgency (principal); R51.9 Headache, unspecified; I25.10 Atherosclerotic heart disease of native coronary artery without angina pectoris; E78.5 Hyperlipidemia, unspecified; K21.9 Gastro-esophageal reflux disease without esophagitis; E11.9 Type 2 diabetes mellitus without complications; J44.9 Chronic obstructive pulmonary disease, unspecified; F32.9 Major depressive disorder, single episode, unspecified; I25.2 Old myocardial infarction; I50.9 Heart failure, unspecified; I11.0 Hypertensive heart disease with heart failure; E78.00 Pure hypercholesterolemia, unspecified; M19.90 Unspecified osteoarthritis, unspecified site; Z87.442 Personal history of urinary calculi; Z88.8 Allergy status to other drugs, medicaments and biological substances; Z86.73 Personal history of transient ischemic attack (TIA), and cerebral infarction without residual deficits; Z98.890 Other specified postprocedural states; Z90.710 Acquired absence of both cervix and uterus; Z90.49 Acquired absence of other specified parts of digestive tract; Z79.899 Other long term (current) drug therapy
CPT/HCPCS: 99282

== ENCOUNTER 2020-09-21 14:13 | Emergency (ER) | payer MEDICARE ==
[2020-09-21] MEDS ORDERED: oxyCODONE /ACETAMINOPHEN 5-325MG TAB PO ONE (15:28)
--- NOTE | 2020-09-21 15:42 | Emergency Department Report ---
HPI - General Chief Complaint: Weakness Time Seen by Provider: 09/21/20 15:06 - HPI HPI: This is an 80-year-old -[place] female presents to the emergency department via EMS from home with complaint of a generalized headache that has been going on intermittently for the past week. Patient was here on 09/16/2020 for similar symptoms and was discharged home after getting some relief, but the patient says that the headache came back. It is currently a throbbing sensation, 8 out of 10 in intensity. She denies any vision change, numbness, paresthesias, or any acute neurological deficits. The patient does have a history of previous CVA with residual right-sided weakness. She also has a history of hypertension, DM, hyperlipidemia, CAD, depression and chronic pain. Patient says that she has a primary care physician but has not followed up with them regarding her symptoms. No recent travel or sick contacts at home. She denies any fever, chest pain, shortness of breath, nausea, vomiting or diaphoresis. She has not taken anything for her current headache prior to presentation. This headache is similar to previous headaches that she has had. ED Past Medical Hx - Past Medical History Previous Medical History?: Yes Hx Hypertension: Yes Hx CVA: Yes (WEAKNESS ON RIGHT SIDE FROM CVA 2019) Hx Heart Attack/AMI: Yes Hx Congestive Heart Failure: Yes Hx Diabetes: Yes (20 YRS) Hx GERD: Yes (GERD) Hx Liver Disease: No Hx Renal Disease: Yes (h/o kidney stones, UTI) Hx Arthritis: Yes Hx Kidney Stones: Yes Hx COPD: Yes (not on inhalers, denies dyspnea) Hx HIV: No Additional medical history: HIGH CHOLESTEROL. CAD - Surgical History Past Surgical History?: Yes Hx Coronary Stent: Yes (2001) Hx Pacemaker: No Hx Cholecystectomy: Yes (08/18) Hx Appendectomy: Yes Additional Surgical History: right knee replacement, hysterectomy, back surgery, stent in kidney/bladder? - Social History Smoking Status: Never Smoker Substance Use Type: None - Medications Home Medications: Home Medications Medication Instructions Recorded Confirmed Last Taken Type Ranitidine HCl [Zantac] 150 mg PO BID 03/24/16 08/12/17 Unknown History Acetaminophen [Acetaminophen TAB] 650 mg PO Q4H PRN #30 tablet 03/27/16 08/12/17 Unknown Rx Aspirin 325 mg PO QDAY #30 tablet 04/11/16 08/12/17 Unknown Rx Atenolol [Tenormin] 100 mg PO DAILY #30 tablet 04/11/16 08/12/17 Unknown Rx AtorvaSTATin [Lipitor] 40 mg PO QDAY #30 tablet 04/11/16 08/12/17 Unknown Rx Duloxetine HCl [Cymbalta] 30 mg PO BID #60 capsule. 04/11/16 08/12/17 Unknown Rx Insulin Glulisine [Apidra] See Protocol SUB-Q ACHS 30 Days 04/11/16 08/12/17 Unknown Rx units Lisinopril 20 mg PO DAILY #30 04/11/16 08/12/17 Unknown Rx Multivitamin Tab [Multiple Vitamin 1 each PO QDAY #30 tablet 04/11/16 08/12/17 Unknown Rx TAB (Theragran)] Norvasc 10 mg PO DAILY #30 04/11/16 08/12/17 Unknown Rx Ranolazine [Ranexa] 500 mg PO BID #60 tab.er.12h 04/11/16 08/12/17 Unknown Rx Sertraline HCl [Zoloft] 25 mg PO QDAY #30 tablet 04/11/16 08/12/17 Unknown Rx Temazepam [Restoril] 15 mg PO QHS PRN #15 capsule 04/11/16 08/12/17 Unknown Rx Cyclobenzaprine HCl [Flexeril 5 MG 5 mg PO TID PRN #30 tab 03/31/18 Unknown Rx TAB] Docusate Sodium [Colace CAP] 100 mg PO BID PRN #20 capsule 03/31/18 Unknown Rx HYDROcodone/APAP 7.5-325 [[place] 1 each PO Q6HR PRN #20 tablet 03/31/18 Unknown Rx 7.5-325 mg TAB] Ibuprofen [Motrin 600 MG tab] 600 mg PO Q8H PRN #30 tablet 03/31/18 Unknown Rx Cyclobenzaprine [Flexeril 10 MG 10 mg PO BID PRN #20 tablet 02/20/19 Unknown Rx TAB] Diclofenac Sodium [Voltaren] 1 applicatio TP QID PRN #1 tube 02/20/19 Unknown Rx Albuterol Sulfate [Proair 90 mcg IH Q4H PRN #1 pump 06/01/19 Unknown Rx Respiclick] Prednisone [predniSONE 5 mg (6-Day 5 mg PO .TAPER #1 tab.ds.pk 06/01/19 Unknown Rx Pack, 21 Tabs)] HYDROcodone/APAP 7.5-325 [[place] 1 each PO Q6HR PRN #10 tablet 09/16/20 Unknown Rx 7.5/325] Ibuprofen [Motrin 600 MG tab] 600 mg PO Q8H PRN #20 tablet 09/21/20 Unknown Rx ED Review of Systems ROS: Stated complaint: GENERAL WEAKNESS Other details as noted in HPI Comment: All other systems reviewed and negative Constitutional: denies: chills, fever Eyes: denies: eye pain, vision change ENT: denies: ear pain, throat pain Respiratory: denies: cough, shortness of breath Cardiovascular: denies: chest pain, palpitations Gastrointestinal: denies: abdominal pain, vomiting Genitourinary: denies: dysuria, discharge Musculoskeletal: denies: back pain, arthralgia Skin: denies: rash, lesions Neurological: headache. denies: numbness Physical Exam - Physical Exam Vital Signs: Vital Signs 09/21/20 14:58 Temperature 99.1 F Pulse Rate 80 Respiratory 16 Rate Blood Pressure 137/80 O2 Sat by Pulse 96 Oximetry Physical Exam: GENERAL: The patient is well-developed well-nourished. HENT: Normocephalic. Atraumatic. Patient has moist mucous membranes. EYES: Extraocular motions are intact. No nystagmus. NECK: Supple. Trachea is midline. CHEST/LUNGS: Clear to auscultation. There is no respiratory distress noted. HEART/CARDIOVASCULAR: Regular. There is no tachycardia. There is no murmur. ABDOMEN: Abdomen is soft, nontender. Patient has normal bowel sounds. SKIN: Skin is warm and dry. NEURO: The patient is awake, alert, and oriented. The patient is cooperative. The patient has no acute focal neurologic deficits. Normal speech. Cranial nerves II through XII grossly intact. MUSCULOSKELETAL: There is no tenderness or deformity. ED Course Vital Signs 09/21/20 14:58 Temperature 99.1 F Pulse Rate 80 Respiratory 16 Rate Blood Pressure 137/80 O2 Sat by Pulse 96 Oximetry - Reevaluation(s) Reevaluation #1: 09/23/20 16:08 Lab Results 09/21/20 09/21/20 09/21/20 Range/Units 16:01 16:01 16:01 WBC 3.6 L (4.5-11.0) K/mm3 RBC 3.60 L (3.65-5.03) M/mm3 Hgb 12.3 (10.1-14.3) gm/dl Hct 36.8 (30.3-42.9) % MCV 102 H (79-97) fl MCH 34 H (28-32) pg MCHC 33 (30-34) % RDW 13.7 (13.2-15.2) % Plt Count 155 (140-440) K/mm3 Lymph % (Auto) 36.4 H (13.4-35.0) % Wood % (Auto) 10.0 H (0.0-7.3) % Eos % (Auto) 1.9 (0.0-4.3) % Baso % (Auto) 0.5 (0.0-1.8) % Lymph # (Auto) 1.3 (1.2-5.4) K/mm3 Wood # (Auto) 0.4 (0.0-0.8) K/mm3 Eos # (Auto) 0.1 (0.0-0.4) K/mm3 Baso # (Auto) 0.0 (0.0-0.1) K/mm3 Seg Neutrophils % 51.2 (40.0-70.0) % Seg Neutrophils # 1.9 (1.8-7.7) K/mm3 Sodium 139 (137-145) mmol/L Potassium 4.0 (3.6-5.0) mmol/L Chloride 106.8 (98-107) mmol/L Carbon Dioxide 23 (22-30) mmol/L Anion Gap 13 mmol/L BUN 12 (7-17) mg/dL Creatinine 0.7 (0.6-1.2) mg/dL Estimated GFR > 60 ml/min BUN/Creatinine Ratio 17 % Glucose 136 H (65-100) mg/dL Calcium 9.6 (8.4-10.2) mg/dL Total Bilirubin 0.90 (0.1-1.2) mg/dL AST 17 (5-40) units/L ALT 14 (7-56) units/L Alkaline Phosphatase 100 (35-129) units/L Troponin T < 0.010 (0.00-0.029) ng/mL Total Protein 6.5 (6.3-8.2) g/dL Albumin 3.7 L (3.9-5) g/dL Albumin/Globulin Ratio 1.3 % TSH 0.795 (0.270-4.200) mlU/mL ED Medical Decision Making - Lab Data Result diagrams: 09/21/20 16:01 09/21/20 16:01 - EKG Data EKG shows normal: sinus rhythm, axis, intervals, QRS complexes (Q waves to the anteroseptal and inferior leads), ST-T waves Rate: normal - EKG Data When compared to previous EKG there are: no significant change Interpretation: unchanged when compared t (05/29/19) - Radiology Data Radiology results: report reviewed CT head/brain wo con INDICATION / CLINICAL INFORMATION: 80 years Female; headache. TECHNIQUE: Routine CT head without contrast. All CT scans at this [facility] are performed using CT dose reduction for ALARA by means of automated exposure control. COMPARISON: 05/29/2019 FINDINGS: BRAIN / INTRACRANIAL CONTENTS: No acute hemorrhage, mass effect, midline shift, hydrocephalus, or acute, large territorial infarct. Mild cerebral and cerebellar atrophy. There are moderate to extensive, somewhat confluent areas of decreased attenuation in the white matter of the cerebral hemispheres, as well as the gangliocapsular regions. These are nonspecific findings and may be related to microangiopathy (hypertension, diabetes, atherosclerosis), given the patient's age. It might be difficult to evaluate for small areas of ischemia without diffusion imaging by MRI. Similar type appearance seen on prior. CRANIOCERVICAL JUNCTION: No significant abnormality. ORBITS: No significant abnormality of visualized orbits. SINUSES / MASTOIDS: No significant abnormality in the visualized paranasal sinuses or mastoid air cells. ADDITIONAL FINDINGS: Mild temporal mandibular joint disease noted. Atherosclerotic disease is seen in the anterior and posterior circulation. IMPRESSION: 1. No focal mass, hemorrhage, hydrocephalus, or acute, large territorial infarct. - Medical Decision Making This patient presents to the emergency department with a complaint of a left- sided headache that has been going on intermittently for the past 5 to 6 days. On examination she does not appear to have any acute motor, sensory or focal deficits. Cranial nerves II through XII are grossly intact. CT scan of the head without contrast was completed that does not show any focal mass, hemorrhage, hydrocephalus, or any large territorial infarction. Labs have been mostly unremarkable including CBC, metabolic panel, troponin, thyroid function. Patient presented with some hypertension and was given a dose of Catapres and upon reevaluation the blood pressures come down to a much more reasonable level. Patient was given a Percocet and I am Toradol for analgesia with improvement as well. Patient appears safe for discharge home at this time. She has been instructed to follow-up with her primary care physician and has been given a referral for neurology. She will return to the emergency department with any worsening of her symptoms or with any acute distress. Critical Care Time: No Critical care attestation.: If time is entered above; I have spent that time in minutes in the direct care of this critically ill patient, excluding procedure time. 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 I am giving you a referral for a local neurologist, Dr. Ortiz, to follow-up regarding your headaches. Try to stay away from foods that are high in salt and caffeinated products. Keep a blood pressure log. Return to the emergency department with any worsening of your symptoms, new or concerning symptoms not addressed during this current emergency department visit, or with any acute distress. Prescriptions: Ibuprofen [Motrin 600 MG tab] 600 mg PO Q8H PRN #20 tablet PRN Reason: Pain Referrals: PRIMARY MD JUANITA [Primary Care Provider] - 2-3 Days JASON ORTIZ MD [Referring] - 2-3 Days Time of Disposition: 19:05
[2020-09-21 16:29] LABS: Basophils % (Auto) 0.5 % (0.0-1.8); Eosinophils # (Auto) 0.1 K/mm3 (0.0-0.4); Eosinophils % (Auto) 1.9 % (0.0-4.3); Hematocrit 36.8 % (30.3-42.9); Hemoglobin 12.3 gm/dl (10.1-14.3); Lymphocytes # (Auto) 1.3 K/mm3 (1.2-5.4); Lymphocytes % (Auto) 36.4 % (13.4-35.0); Mean Corpuscular HGB Conc 33 % (30-34); Mean Corpuscular Volume 102 fl (79-97); Monocytes # (Auto) 0.4 K/mm3 (0.0-0.8); Platelet Count 155 K/mm3 (140-440); Red Cell Distribution Width 13.7 % (13.2-15.2)
[2020-09-21 16:52] LABS: Alanine Aminotransferase 14 units/L (7-56); Albumin 3.7 g/dL (3.9-5); Blood Urea Nitrogen 12 mg/dL (7-17); Calcium 9.6 mg/dL (8.4-10.2); Hemolysis Index 16
[2020-09-21 16:54] LABS: BUN/Creatinine Ratio 17
--- NOTE | 2020-09-21 17:06 | Cat Scan Report ---
CT head/brain wo con INDICATION / CLINICAL INFORMATION: 80 years Female; headache. TECHNIQUE: Routine CT head without contrast. All CT scans at this location are performed using CT dos e reduction for ALARA by means of automated exposure control. COMPARISON: 05/29/2019 FINDINGS: BRAIN / INTRACRANIAL CONTENTS: No acute hemorrhage, mass effect, midline shift, hydrocephalus, or acu te, large territorial infarct. Mild cerebral and cerebellar atrophy. There are moderate to extensive, somewhat confluent areas of decreased attenuation in the white matte r of the cerebral hemispheres, as well as the gangliocapsular regions. These are nonspecific findings and may be related to microangiopathy (hypertension, diabetes, atherosclerosis), given the patient's age. It might be difficult to evaluate for small areas of ischemia without diffusion imaging by MRI. Similar type appearance seen on prior. CRANIOCERVICAL JUNCTION: No significant abnormality. ORBITS: No significant abnormality of visualized orbits. SINUSES / MASTOIDS: No significant abnormality in the visualized paranasal sinuses or mastoid air avani ls. ADDITIONAL FINDINGS: Mild temporal mandibular joint disease noted. Atherosclerotic disease is seen i n the anterior and posterior circulation. IMPRESSION: 1. No focal mass, hemorrhage, hydrocephalus, or acute, large territorial infarct. Diffusion imaging b y MRI may be helpful for further evaluation, if clinically warranted. Signer Name: Jude Mejia MD, III Signed: 09/21/2020 5:02 PM Workstation Name: [id number]
[2020-09-21] MEDS ORDERED: cloNIDine 0.1 MG TAB PO ONE (17:22)
[2020-09-21] MEDS ORDERED: KETOROLAC 30 MG/1 ML INJ IM ONE (17:23)
[2020-09-21 23:06] VITALS: BP 143/83
== END 2020-09-21 23:33 | disposition home or self-care (01) ==
LOC: ED 14:13
DX: R51.9 Headache, unspecified (principal); M26.642 Arthritis of left temporomandibular joint; I11.0 Hypertensive heart disease with heart failure; I50.9 Heart failure, unspecified; E11.9 Type 2 diabetes mellitus without complications; K21.9 Gastro-esophageal reflux disease without esophagitis; I25.2 Old myocardial infarction; J44.9 Chronic obstructive pulmonary disease, unspecified; E78.00 Pure hypercholesterolemia, unspecified; Z90.710 Acquired absence of both cervix and uterus; Z90.49 Acquired absence of other specified parts of digestive tract; Z98.890 Other specified postprocedural states; Z79.899 Other long term (current) drug therapy; Z88.6 Allergy status to analgesic agent
CPT/HCPCS: 36415; 70450; 80053; 84443; 84484; 85025; 93005; 96372; 99285; J1885

== ENCOUNTER 2020-10-04 15:36 | Emergency (ER) | payer MEDICARE | END 2020-10-04 15:45 | disposition left against medical advice (07) | LOC: ED 15:36 | DX: R53.1 Weakness (principal); Z53.21 Procedure and treatment not carried out due to patient leaving prior to being seen by health care provider ==

== ENCOUNTER 2021-02-20 13:04 | Outpatient (CLI) | payer MEDICARE ==
--- NOTE | 2021-02-20 14:21 | XRay Report ---
CHEST 2 VIEWS INDICATION: J44.9 I69.391. COMPARISON: May 29, 2019 FINDINGS: Support devices: None. Heart: Within normal limits. Lungs: No acute air space or interstitial disease. Pleura: No significant pleural effusion. No pneumothorax. Additional findings: None. IMPRESSION: 1. No acute findings. Signer Name: Angus Blackman MD Signed: 02/20/2021 2:16 PM Workstation Name: [id number]
== END 2021-02-20 13:05 | disposition home or self-care (01) ==
LOC: XRAY 13:04
PROVIDERS: ATTEND Internal Medicine
DX: J44.9 Chronic obstructive pulmonary disease, unspecified (principal); I69.391 Dysphagia following cerebral infarction
CPT/HCPCS: 71046

== ENCOUNTER 2021-10-25 12:49 | Emergency (ER) | payer MEDICARE ==
[2021-10-25 13:34] VITALS: BP 193/92
[2021-10-25] MEDS ORDERED: NON-FORMULARY EACH (Lisinopril 20 MG) PO STA (14:50)
[2021-10-25] MEDS ORDERED: NON-FORMULARY EACH (Norvasc 10 MG) PO STA (14:50)
--- NOTE | 2021-10-25 14:52 | Emergency Department Report ---
ED General Adult HPI - General Chief complaint: Pain General Stated complaint: pain Time Seen by Provider: 10/25/21 14:39 Source: patient, EMS ( EMS documentation not available at time of chart dictation ), RN notes reviewed, old records reviewed Mode of arrival: Stretcher Limitations: Physical Limitation - History of Present Illness Initial comments: During the history and physical examination, I am chaperoned by KATHY FRENCH This is an 81-year-old female. Her past medical history includes type 2 diabetes, COPD, chronic pain, coronary artery disease, GERD, and hypertension. The patient also reports that she is disabled, and lives at home with her fianc, and has a walker, as well as a wheelchair. She further endorses that she has a daily visiting nurse. The patient reports that she has total body pain after receiving the Covid booster approximately 1 week ago. She has not fallen in 2 to 3 months. She has a headache, paraspinal neck pain, and diffuse back pain. She reports a history of 4 strokes, and chronic dysarthria, and chronic debility. However, she denies new extremity weakness and numbness, new ataxia, and new dizziness. She is not sure if she has taken pain medications at home. She thinks that she might have dysuria but she is not certain. She has a chronic cough. She denies hematemesis and bright red blood per rectum to the best of her recollection. She she believes she took her blood pressure medication this morning, but she is not certain. -: Gradual, days(s) Location: head, back Severity scale (0 -10): 9 Quality: aching Consistency: intermittent Improves with: rest Worsens with: movement - Related Data Home Medications Medication Instructions Recorded Confirmed Last Taken Ranitidine HCl [Zantac] 150 mg PO BID 03/24/16 08/12/17 Unknown Previous Rx's Medication Instructions Recorded Last Taken Type Acetaminophen [Acetaminophen TAB] 650 mg PO Q4H PRN #30 tablet 03/27/16 Unknown Rx Aspirin 325 mg PO QDAY #30 tablet 04/11/16 Unknown Rx Atenolol [Tenormin] 100 mg PO DAILY #30 tablet 04/11/16 Unknown Rx AtorvaSTATin [Lipitor] 40 mg PO QDAY #30 tablet 04/11/16 Unknown Rx Duloxetine HCl [Cymbalta] 30 mg PO BID #60 capsule. 04/11/16 Unknown Rx Insulin Glulisine [Apidra] See Protocol SUB-Q ACHS 30 Days 04/11/16 Unknown Rx units Lisinopril 20 mg PO DAILY #30 04/11/16 Unknown Rx Multivitamin Tab [Multiple Vitamin 1 each PO QDAY #30 tablet 04/11/16 Unknown Rx TAB (Theragran)] Norvasc 10 mg PO DAILY #30 04/11/16 Unknown Rx Ranolazine [Ranexa] 500 mg PO BID #60 tab.er.12h 04/11/16 Unknown Rx Sertraline HCl [Zoloft] 25 mg PO QDAY #30 tablet 04/11/16 Unknown Rx Docusate Sodium [Colace CAP] 100 mg PO BID PRN #20 capsule 03/31/18 Unknown Rx HYDROcodone/APAP 7.5-325 [[place] 1 each PO Q6HR PRN #20 tablet 03/31/18 Unknown Rx 7.5-325 mg TAB] Albuterol Sulfate [Proair 90 mcg IH Q4H PRN #1 pump 06/01/19 Unknown Rx Respiclick] Prednisone [predniSONE 5 mg (6-Day 5 mg PO .TAPER #1 tab.ds.pk 06/01/19 Unknown Rx Pack, 21 Tabs)] Acetaminophen [Tylenol] 325 mg PO Q6HR PRN #30 capsule 10/25/21 Unknown Rx Ibuprofen [Motrin] 200 mg PO Q6H PRN #30 tablet 10/25/21 Unknown Rx Metoclopramide [Reglan] 10 mg PO Q6HR PRN #20 tab 10/25/21 Unknown Rx Allergies Allergy/AdvReac Type Severity Reaction Status Date / Time zolpidem tartrate AdvReac HALLUCINATE Verified 10/25/21 12:55 [From [facility]] ED Review of Systems ROS: Stated complaint: WEAKNESS Other details as noted in HPI Constitutional: other (Denies loss of taste and smell). denies: fever Respiratory: cough (Chronic) Cardiovascular: denies: chest pain Gastrointestinal: denies: abdominal pain Musculoskeletal: back pain, arthralgia, myalgia Skin: as per HPI Neurological: denies: weakness (Denies new/different weakness) ED Past Medical Hx - Past Medical History Previous Medical History?: Yes Hx Hypertension: Yes Hx CVA: Yes Hx Heart Attack/AMI: Yes Hx Congestive Heart Failure: Yes Hx Diabetes: Yes (20 YRS) Hx GERD: Yes (GERD) Hx Liver Disease: No Hx Renal Disease: Yes (h/o kidney stones, UTI) Hx Arthritis: Yes Hx Kidney Stones: Yes Hx COPD: Yes (not on inhalers, denies dyspnea) Hx HIV: No Additional medical history: HIGH CHOLESTEROL. CAD - Surgical History Hx Coronary Stent: Yes (2001) Hx Pacemaker: No Hx Cholecystectomy: Yes (08/18) Hx Appendectomy: Yes Additional Surgical History: right knee replacement, hysterectomy, back surgery, stent in kidney/bladder? - Social History Smoking Status: Never Smoker Substance Use Type: None - Medications Home Medications: Home Medications Medication Instructions Recorded Confirmed Last Taken Type Ranitidine HCl [Zantac] 150 mg PO BID 03/24/16 08/12/17 Unknown History Acetaminophen [Acetaminophen TAB] 650 mg PO Q4H PRN #30 tablet 03/27/16 08/12/17 Unknown Rx Aspirin 325 mg PO QDAY #30 tablet 04/11/16 08/12/17 Unknown Rx Atenolol [Tenormin] 100 mg PO DAILY #30 tablet 04/11/16 08/12/17 Unknown Rx AtorvaSTATin [Lipitor] 40 mg PO QDAY #30 tablet 04/11/16 08/12/17 Unknown Rx Duloxetine HCl [Cymbalta] 30 mg PO BID #60 capsule. 04/11/16 08/12/17 Unknown Rx Insulin Glulisine [Apidra] See Protocol SUB-Q ACHS 30 Days 04/11/16 08/12/17 Unknown Rx units Lisinopril 20 mg PO DAILY #30 04/11/16 08/12/17 Unknown Rx Multivitamin Tab [Multiple Vitamin 1 each PO QDAY #30 tablet 04/11/16 08/12/17 Unknown Rx TAB (Theragran)] Norvasc 10 mg PO DAILY #30 04/11/16 08/12/17 Unknown Rx Ranolazine [Ranexa] 500 mg PO BID #60 tab.er.12h 04/11/16 08/12/17 Unknown Rx Sertraline HCl [Zoloft] 25 mg PO QDAY #30 tablet 04/11/16 08/12/17 Unknown Rx Docusate Sodium [Colace CAP] 100 mg PO BID PRN #20 capsule 03/31/18 Unknown Rx HYDROcodone/APAP 7.5-325 [[place] 1 each PO Q6HR PRN #20 tablet 03/31/18 Unknown Rx 7.5-325 mg TAB] Albuterol Sulfate [Proair 90 mcg IH Q4H PRN #1 pump 06/01/19 Unknown Rx Respiclick] Prednisone [predniSONE 5 mg (6-Day 5 mg PO .TAPER #1 tab.ds.pk 06/01/19 Unknown Rx Pack, 21 Tabs)] Acetaminophen [Tylenol] 325 mg PO Q6HR PRN #30 capsule 10/25/21 Unknown Rx Ibuprofen [Motrin] 200 mg PO Q6H PRN #30 tablet 10/25/21 Unknown Rx Metoclopramide [Reglan] 10 mg PO Q6HR PRN #20 tab 10/25/21 Unknown Rx ED Physical Exam - General Limitations: Physical Limitation General appearance: alert, in no apparent distress - Head Head exam: Present: atraumatic, normocephalic - Eye Eye exam: Present: normal appearance, EOMI. Absent: nystagmus - ENT ENT exam: Present: normal exam, normal orophraynx, mucous membranes moist, normal external ear exam, other (Poor dentition) - Neck Neck exam: Present: normal inspection, full ROM. Absent: tenderness, meningismus - Respiratory Respiratory exam: Present: decreased breath sounds. Absent: respiratory distress, rhonchi, stridor - Cardiovascular Cardiovascular Exam: Present: regular rate, normal rhythm, normal heart sounds. Absent: bradycardia, tachycardia, irregular rhythm, systolic murmur, diastolic murmur, rubs, gallop - GI/Abdominal GI/Abdominal exam: Present: soft. Absent: distended, tenderness, guarding, rebound, rigid, pulsatile mass - Extremities Exam Extremities exam: Present: normal inspection, full ROM, pedal edema (1+ edema in the bilateral lower extremities), other (2+ pulses noted in the bilateral upper and lower extremities. There is no palpable cord. negative Homans sign. Muscular compartments are soft. The pelvis is stable.). Absent: calf tenderness - Back Exam Back exam: Present: normal inspection, paraspinal tenderness. Absent: tenderness, vertebral tenderness - Neurological Exam Neurological exam: Present: alert (There is no facial droop. The tongue is midline. EOMI.), oriented X3 (Patient is alert to name, location, and month. She is chronically dysarthric), other (Patient moves 4 extremities spontaneously and to command. Sensation is intact to light touch in 4 extremities) - Psychiatric Psychiatric exam: Present: flat affect - Skin Skin exam: Present: warm, dry, intact, normal color. Absent: rash ED Course Vital Signs 10/25/21 10/25/21 10/25/21 12:50 13:33 13:34 Temperature 98.3 F Pulse Rate 76 66 Respiratory 16 16 Rate Blood Pressure 168/110 193/92 [Left] O2 Sat by Pulse 97 95 95 Oximetry - Reevaluation(s) Reevaluation #1: 10/25/21 15:47 Differential diagnosis, including but not limited to: Chronic pain syndrome, neuropathy, chronic debility, pneumonia, urinary tract infection, elevated CK, chronic hypertension, migraine headache, tension headache, cluster headache Assessment and plan 81-year-old female, with a number of chronic medical conditions, who does not appear to be acutely decompensated at this time. Her hypertension is chronic. She is not acutely encephalopathic. She moves 4 extremities without difficulty. While dysarthric, she is adamant that her speech is at its baseline, and she further reports that she has robust resources at home, including a visiting nurse on a daily basis, a walker, and a wheelchair at home. She also reports that she lives at home with her [facility], [place]. Her physical examination is fairly unremarkable, she has reproducible muscular back pain, without midline spinal tenderness or step-offs. She has downgoing plantar reflexes bilaterally, and appropriate reflexes in her upper and lower extremities. She has equal pulses in her upper and lower extremities. She is also afebrile, and saturating at 99/100% on room air. I doubt the presence of an emergent medical condition at this time. However, given her advanced age, multiple medical comorbidities, elevated blood pressure, we will obtain appropriate laboratory studies, urinalysis, EKG, noncontrast CT scan of the brain. Presuming no acute or emergent findings, patient should be suitable for discharge back to her [facility], [place], with her robust resources already in place. We will treat her with nonnarcotic nonsedating pain medication, continue current antihypertensive therapy 10/25/21 15:48 10/25/21 17:11 The patient is resting comfortably in her stretcher at this time, and she is not in any acute distress. Her repeat examination is unchanged. She does endorse that she took Tylenol/acetaminophen recently today for her pain, which is why this patient has a slightly detectable acetaminophen level. Her EKG is unchanged from prior, CT scan of the brain, x-ray the chest unremarkable. Her urinalysis is contaminated, not consistent with urinary tract infection. Patient has not found to have an emergent medical condition present at this time. She may follow-up with her outpatient primary care doctor ED Medical Decision Making - Lab Data Result diagrams: 10/25/21 15:12 10/25/21 15:12 Vital Signs 10/25/21 10/25/21 10/25/21 12:50 13:33 13:34 Temperature 98.3 F Pulse Rate 76 66 Respiratory 16 16 Rate Blood Pressure 168/110 193/92 [Left] O2 Sat by Pulse 97 95 95 Oximetry Lab Results 10/25/21 10/25/21 10/25/21 Range/Units 15:12 15:12 15:12 WBC 3.9 L (4.5-11.0) K/mm3 RBC 3.93 (3.65-5.03) M/mm3 Hgb 12.5 (10.1-14.3) gm/dl Hct 39.2 (30.3-42.9) % MCV 100 H (79-97) fl MCH 32 (28-32) pg MCHC 32 (30-34) % RDW 14.0 (13.2-15.2) % Plt Count 142 (140-440) K/mm3 Lymph % (Auto) 44.5 H (13.4-35.0) % Orange % (Auto) 11.2 H (0.0-7.3) % Eos % (Auto) 1.2 (0.0-4.3) % Baso % (Auto) 1.3 (0.0-1.8) % Lymph # (Auto) 1.7 (1.2-5.4) K/mm3 Orange # (Auto) 0.4 (0.0-0.8) K/mm3 Eos # (Auto) 0.0 (0.0-0.4) K/mm3 Baso # (Auto) 0.0 (0.0-0.1) K/mm3 Seg Neutrophils % 41.8 (40.0-70.0) % Seg Neutrophils # 1.6 L (1.8-7.7) K/mm3 PT 13.3 (12.2-14.9) Sec. INR 0.91 (0.87-1.13) Sodium 141 (137-145) mmol/L Potassium 4.0 (3.6-5.0) mmol/L Chloride 104.1 (98-107) mmol/L Carbon Dioxide 25 (22-30) mmol/L Anion Gap 16 mmol/L BUN 9 (7-17) mg/dL Creatinine 0.8 (0.6-1.2) mg/dL Estimated GFR > 60 ml/min BUN/Creatinine Ratio 11 % Glucose 79 (65-100) mg/dL Calcium 9.8 (8.4-10.2) mg/dL Magnesium 1.80 (1.7-2.3) mg/dL Total Bilirubin 1.00 (0.1-1.2) mg/dL AST 13 (5-40) units/L ALT 7 (7-56) units/L Alkaline Phosphatase 112 (35-129) units/L Total Creatine Kinase 94 (30-135) units/L Troponin T 0.018 (0.00-0.029) ng/mL Total Protein 7.1 (6.3-8.2) g/dL Albumin 3.9 (3.9-5) g/dL Albumin/Globulin Ratio 1.2 % TSH (0.270-4.200) mlU/mL Urine Color (Yellow) Urine Turbidity (Clear) Urine pH (5.0-7.0) Ur Specific [place] (1.003-1.030) Urine Protein (Negative) mg/dL Urine Glucose (UA) (Negative) mg/dL Urine Ketones (Negative) mg/dL Urine Blood (Negative) Urine Nitrite (Negative) Urine Bilirubin (Negative) Urine Urobilinogen (<2.0) mg/dL Ur Leukocyte Esterase (Negative) Urine WBC (Auto) (0.0-6.0) /HPF Urine RBC (Auto) (0.0-6.0) /HPF U Epithel Cells (Auto) (0-13.0) /HPF Urine Bacteria (Auto) (Negative) /HPF Urine Mucus /HPF Salicylates (2.8-20.0) mg/dL Acetaminophen (10.0-30.0) ug/mL 10/25/21 10/25/21 10/25/21 Range/Units 15:12 15:12 15:12 WBC (4.5-11.0) K/mm3 RBC (3.65-5.03) M/mm3 Hgb (10.1-14.3) gm/dl Hct (30.3-42.9) % MCV (79-97) fl MCH (28-32) pg MCHC (30-34) % RDW (13.2-15.2) % Plt Count (140-440) K/mm3 Lymph % (Auto) (13.4-35.0) % Orange % (Auto) (0.0-7.3) % Eos % (Auto) (0.0-4.3) % Baso % (Auto) (0.0-1.8) % Lymph # (Auto) (1.2-5.4) K/mm3 Orange # (Auto) (0.0-0.8) K/mm3 Eos # (Auto) (0.0-0.4) K/mm3 Baso # (Auto) (0.0-0.1) K/mm3 Seg Neutrophils % (40.0-70.0) % Seg Neutrophils # (1.8-7.7) K/mm3 PT (12.2-14.9) Sec. INR (0.87-1.13) Sodium (137-145) mmol/L Potassium (3.6-5.0) mmol/L Chloride (98-107) mmol/L Carbon Dioxide (22-30) mmol/L Anion Gap mmol/L BUN (7-17) mg/dL Creatinine (0.6-1.2) mg/dL Estimated GFR ml/min BUN/Creatinine Ratio % Glucose (65-100) mg/dL Calcium (8.4-10.2) mg/dL Magnesium (1.7-2.3) mg/dL Total Bilirubin (0.1-1.2) mg/dL AST (5-40) units/L ALT (7-56) units/L Alkaline Phosphatase (35-129) units/L Total Creatine Kinase (30-135) units/L Troponin T (0.00-0.029) ng/mL Total Protein (6.3-8.2) g/dL Albumin (3.9-5) g/dL Albumin/Globulin Ratio % TSH 1.150 (0.270-4.200) mlU/mL Urine Color (Yellow) Urine Turbidity (Clear) Urine pH (5.0-7.0) Ur Specific [place] (1.003-1.030) Urine Protein (Negative) mg/dL Urine Glucose (UA) (Negative) mg/dL Urine Ketones (Negative) mg/dL Urine Blood (Negative) Urine Nitrite (Negative) Urine Bilirubin (Negative) Urine Urobilinogen (<2.0) mg/dL Ur Leukocyte Esterase (Negative) Urine WBC (Auto) (0.0-6.0) /HPF Urine RBC (Auto) (0.0-6.0) /HPF U Epithel Cells (Auto) (0-13.0) /HPF Urine Bacteria (Auto) (Negative) /HPF Urine Mucus /HPF Salicylates < 0.3 L (2.8-20.0) mg/dL Acetaminophen 8.5 L (10.0-30.0) ug/mL 10/25/ Range/Units Unknown WBC (4.5-11.0) K/mm3 RBC (3.65-5.03) M/mm3 Hgb (10.1-14.3) gm/dl Hct (30.3-42.9) % MCV (79-97) fl MCH (28-32) pg MCHC (30-34) % RDW (13.2-15.2) % Plt Count (140-440) K/mm3 Lymph % (Auto) (13.4-35.0) % Orange % (Auto) (0.0-7.3) % Eos % (Auto) (0.0-4.3) % Baso % (Auto) (0.0-1.8) % Lymph # (Auto) (1.2-5.4) K/mm3 Orange # (Auto) (0.0-0.8) K/mm3 Eos # (Auto) (0.0-0.4) K/mm3 Baso # (Auto) (0.0-0.1) K/mm3 Seg Neutrophils % (40.0-70.0) % Seg Neutrophils # (1.8-7.7) K/mm3 PT (12.2-14.9) Sec. INR (0.87-1.13) Sodium (137-145) mmol/L Potassium (3.6-5.0) mmol/L Chloride (98-107) mmol/L Carbon Dioxide (22-30) mmol/L Anion Gap mmol/L BUN (7-17) mg/dL Creatinine (0.6-1.2) mg/dL Estimated GFR ml/min BUN/Creatinine Ratio % Glucose (65-100) mg/dL Calcium (8.4-10.2) mg/dL Magnesium (1.7-2.3) mg/dL Total Bilirubin (0.1-1.2) mg/dL AST (5-40) units/L ALT (7-56) units/L Alkaline Phosphatase (35-129) units/L Total Creatine Kinase (30-135) units/L Troponin T (0.00-0.029) ng/mL Total Protein (6.3-8.2) g/dL Albumin (3.9-5) g/dL Albumin/Globulin Ratio % TSH (0.270-4.200) mlU/mL Urine Color Yellow (Yellow) Urine Turbidity Cloudy (Clear) Urine pH 6.0 (5.0-7.0) Ur Specific [place] 1.020 (1.003-1.030) Urine Protein <15 mg/dl (Negative) mg/dL Urine Glucose (UA) Neg (Negative) mg/dL Urine Ketones Tr (Negative) mg/dL Urine Blood Sm (Negative) Urine Nitrite Neg (Negative) Urine Bilirubin Neg (Negative) Urine Urobilinogen 2.0 (<2.0) mg/dL Ur Leukocyte Esterase Neg (Negative) Urine WBC (Auto) 4.0 (0.0-6.0) /HPF Urine RBC (Auto) 2.0 (0.0-6.0) /HPF U Epithel Cells (Auto) 33.0 H (0-13.0) /HPF Urine Bacteria (Auto) 1+ (Negative) /HPF Urine Mucus 2+ /HPF Salicylates (2.8-20.0) mg/dL Acetaminophen (10.0-30.0) ug/mL - EKG Data -: EKG Interpreted by Wi EKG shows normal: sinus rhythm Rate: normal - EKG Data 10/25/21 17:10 The EKG is interpreted at 16: 42 Sinus rhythm, rate 78 bpm. There is a borderline leftward axis deviation. The QT is 4 7 3 ms. There is low voltage in the lateral leads. There is motion artifact. There is a normal P wave axis. This is an abnormal EKG. This is not a STEMI. This appears to be unchanged when compared to prior EKG from May 2019 - Radiology Data Radiology results: pending, report reviewed, image reviewed . CT BRAIN: 10/25/2021 INDICATION / CLINICAL INFORMATION: headache htn weakness. COMPARISON: CT brain 09/21/2020 FINDINGS: BRAIN/INTRACRANIAL STR UCTURES: Unenhanced CT images of the brain demonstrate no evidence of acute abnormality. Ventricles and sulci are prominent in size, consistent with age- related atrophic change. Extensive chronic white matter hypoattenuation is present throughout the cerebral hemispheric white matter. There is evidence of bilateral thalamic and basal ganglia lacunar infarcts, chronic appearance, and unchanged when compared to the prior exam. There is no evidence of acute large vessel territory ischemic injury, hemorrhage, or mass. There are no abnormal extra-axial fluid collections. Atherosclerotic vascular calcifications are present in the distal internal carotid arteries and vertebral arteries. EXTRA CRANIAL STRUCTURES: Unremarkable. IMPRESSION: No acute abnormality. Stable extensive chronic and age-related changes. All CT scans at this location are performed using dose reduction to ALARA by means of automated exposure control. Signer Name: Tyrone Doran MD Signed: 10/25/2021 3:42 PM Workstation Name: [id number] XR chest 1V ap INDICATION / CLINICAL INFORMATION: Weakness back pain weakness. COMPARISON: 02/20/2021 FINDINGS: SUPPORT DEVICES: None. HEART /PULMONARY VASCULATURE: No significant abnormality. LUNGS / PLEURA: No significant pulmonary or pleural abnormality. No pneumothorax. ADDITIONAL FINDINGS: No significant additional findings. IMPRESSION: 1. No acute findings. Signer Name: Eugene Lee MD Signed: 10/25/2021 3:09 PM Workstation Name: [employer]- [id number] Critical care attestation.: If time is entered above; I have spent that time in minutes in the direct care of this critically ill patient, excluding procedure time. ED Disposition Clinical Impression: Elevated blood pressure reading, History of stroke, Muscular pain, Chronic pain syndrome, Dysarthria as late effect of cerebrovascular accident (CVA) Disposition: 01 HOME / SELF CARE / HOMELESS Is pt being admited?: No Does the pt Need Aspirin: No Condition: Good Additional Instructions: Please continue current outpatient medications. Please continue current blood pressure medications. Long-term complications of hypertension elevated blood pressure include stroke, heart attack, disability, paralysis, and loss of quality of life. Recommend that the patient follow-up with her primary care doctor in 7 to 10 days for repeat checkup and evaluation. Recommend that patient use her walker at home or her wheelchair, and do not ambulate without assistance if she elects to do so. Please have your primary care doctor contact the medical records department to obtain copies of laboratory studies and imaging studies, and follow-up on nonemergent incidental findings. Please return to the emergency room right away with new pain, worsened pain, migration of pain, projectile vomiting, change in mental status, confusion, inability tolerate liquid feeds, new, worsened or different symptoms not present on the initial emergency room evaluation Referrals: WHITNEY PALOMINO MD [Staff Physician] - 7-10 days
[2021-10-25] MEDS ORDERED: LISINOPRIL 20 MG TAB PO STA (15:15)
[2021-10-25] MEDS ORDERED: amLODIPine 10 MG TAB PO STA (15:16)
[2021-10-25 15:42] LABS: Bacteria,Urine 1+ /HPF (Negative); Bilirubin,Urine NEG (Negative); Blood,Urine SM (Negative); Color,Urine Yellow (Yellow); Mucus,Urine 2+ /HPF; Protein,Urine <15 mg/dL mg/dL (Negative)
[2021-10-25 15:45] LABS: Basophils % (Auto) 1.3 % (0.0-1.8); Eosinophils % (Auto) 1.2 % (0.0-4.3); Hematocrit 39.2 % (30.3-42.9); Hemoglobin 12.5 gm/dl (10.1-14.3); Lymphocytes # (Auto) 1.7 K/mm3 (1.2-5.4); Lymphocytes % (Auto) 44.5 % (13.4-35.0); Mean Corpuscular HGB Conc 32 % (30-34); Mean Corpuscular Volume 100 fl (79-97); Monocytes # (Auto) 0.4 K/mm3 (0.0-0.8); Monocytes % (Auto) 11.2 % (0.0-7.3); Red Blood Count 3.93 M/mm3 (3.65-5.03)
[2021-10-25] MEDS ORDERED: METOCLOPRAMIDE 10 MG TAB PO ONE (15:47)
[2021-10-25] MEDS ORDERED: diphenhydrAMINE 25 MG CAP PO ONE (15:47)
[2021-10-25 15:52] LABS: INR 0.91 (0.87-1.13)
[2021-10-25 16:06] LABS: Alanine Aminotransferase 7 units/L (7-56); Albumin 3.9 g/dL (3.9-5); BUN/Creatinine Ratio 11; Blood Urea Nitrogen 9 mg/dL (7-17); Calcium 9.8 mg/dL (8.4-10.2); Hemolysis Index 10
--- NOTE | 2021-10-25 16:14 | XRay Report ---
XR chest 1V ap INDICATION / CLINICAL INFORMATION: Weakness back pain weakness. COMPARISON: 02/20/2021 FINDINGS: SUPPORT DEVICES: None. HEART /PULMONARY VASCULATURE: No significant abnormality. LUNGS / PLEURA: No significant pulmonary or pleural abnormality. No pneumothorax. ADDITIONAL FINDINGS: No significant additional findings. IMPRESSION: 1. No acute findings. Signer Name: Eugene Lee MD Signed: 10/25/2021 4:09 PM Workstation Name: [id number]
[2021-10-25] MEDS ORDERED: traMADol 50 MG TAB PO ONE (16:18)
--- NOTE | 2021-10-25 16:46 | Cat Scan Report ---
. CT BRAIN: 10/25/2021 INDICATION / CLINICAL INFORMATION: headache htn weakness. COMPARISON: CT brain 09/21/2020 FINDINGS: BRAIN/INTRACRANIAL STRUCTURES: Unenhanced CT images of the brain demonstrate no evidence of acute abn ormality. Ventricles and sulci are prominent in size, consistent with age-related atrophic change. Extensive chronic white matter hypoattenuation is present throughout the cerebral hemispheric white m atter. There is evidence of bilateral thalamic and basal ganglia lacunar infarcts, chronic appearance , and unchanged when compared to the prior exam. There is no evidence of acute large vessel territory ischemic injury, hemorrhage, or mass. There are no abnormal extra-axial fluid collections. Atherosclerotic vascular calcifications are present in the distal internal carotid arteries and verte bral arteries. EXTRACRANIAL STRUCTURES: Unremarkable. IMPRESSION: No acute abnormality. Stable extensive chronic and age-related changes. All CT scans at this location are performed using dose reduction to ALARA by means of automated expos ure control. Signer Name: Tyrone Doran MD Signed: 10/25/2021 4:42 PM Workstation Name: [id number]
[2021-10-25 17:07] LABS: Mean Platelet Volume 10.3 fl (6-12); Platelet Count 142 K/mm3 (140-440)
--- NOTE | 2021-10-28 10:42 | Electrocardiograph Report ---
[facility] Test Date: 2021-10-25 Test Time: 16:42:50 Pat Name: NANCY BRADY Department: Room: Gender: F Appellate Law Clerk: : 1940 Requested By: VLADISLAV MORA Order Number: [id number] Reading MD: Gladys Bullock Measurements Intervals [place] Rate: 78 P: 51 AL: 188 QRS: -13 QRSD: 85 T: 72 QT: 416 QTc: 473 Interpretive Statements Sinus rhythm No previous ECG available for comparison Electronically Signed On 10-28-2021 10:41:47 EST by Gladys Bullock
== END 2021-10-25 20:24 | disposition home or self-care (01) ==
LOC: ED 12:49
DX: I10 Essential (primary) hypertension (principal); Z86.73 Personal history of transient ischemic attack (TIA), and cerebral infarction without residual deficits; G89.4 Chronic pain syndrome; M79.10 Myalgia, unspecified site
CPT/HCPCS: 36415; 70450; 71045; 80053; 80320; 81001; 82550; 83735; 84443; 84484; 85025; 85610; 93005; 99285; G0480